=== PATIENT | female | born 1950 | race Caucasian/White ===

== ENCOUNTER → 2017-10-24 09:54 | Outpatient (CLI) | payer MEDICARE, OTHER, SELFPAY ==
[2017-10-24 10:46] LABS: Add Manual Diff / Slide Review NO; Basophils Percent Auto 0.4 % (0-2); Eosinophils Percent Auto 0.2 % (2-4); Hematocrit 37.7 % (36-46); Lymphocytes Percent Auto 14.7 % (25-40); Mean Corpuscular HGB Conc 34.4 % (30-36); Mean Corpuscular Hemoglobin 31.6 PG (26-34); Mean Corpuscular Volume 91.7 fL (80-100); Monocytes Percent Auto 7.6 % (3-14); Neutrophils Absolute Auto 7100 /uL (3000-5900); Neutrophils Percent Auto 77.1 % (50-75); Platelet Count 284 X10^3/uL (150-400); Red Blood Cell Count 4.11 X10^6/uL (4.0-5.2); Red Cell Distribution Width 13.6 % (11.6-14.8); White Blood Cell Count 9.2 X10^3/uL (4.5-11.0)
[2017-10-24 11:30] LABS: Alanine Aminotransferase 26 IU/L (9-52); Albumin 4.3 g/dL (3.5-5.0); Albumin Globulin Ratio 1.5 (1.0-2.8); Alkaline Phosphatase 67 U/L (38-126); Aspartate Aminotransferase 29 IU/L (14-36); BUN Creatinine Ratio 22.5 (6-22); Bilirubin Total 0.6 mg/dL (0.2-1.3); Blood Urea Nitrogen 18 mg/dL (7-17); Calcium 9.4 mg/dL (8.4-10.2); Carbon Dioxide 31 mmol/L (22-32); Chloride 98 mmol/L (98-107); Cholesterol 258 mg/dL (140-199); Estimated Glomerular Filt Rate > 60.0 mL/min (>60); Globulin 2.9 g/dL (1.7-4.1); Glucose 99 mg/dL (80-110); HDL Cholesterol 104 mg/dL (40-60); HEMOLYSIS < 15 (0-50); LDL Cholesterol Calculated 137 mg/dL (<100); Potassium 4.6 mmol/L (3.4-5.1); Sodium 138 mmol/L (137-145); Total Protein 7.2 g/dL (6.3-8.2); Triglycerides 84 mg/dL (35-150)
== END ==
PROVIDERS: Family Provider Family Medicine; PCP Family Medicine; Visit Provider Family Medicine
DX: I10 Essential (primary) hypertension (principal); E78.00 Pure hypercholesterolemia, unspecified
CPT/HCPCS: 36415; 80053; 80061; 85025

== ENCOUNTER 2018-03-13 11:25 | Day surgery (SDC) | payer MEDICARE, OTHER, SELFPAY ==
--- NOTE | 2018-03-13 08:17 | PM.PREOP ---
Pre-operative Note Interval Note Pre-op Check: Yes History & Physical Reviewed by Physician Changes: No
[2018-03-13 11:59] VITALS: BP 124/72; PULSE 102; RESP 16; TEMP 36.2; O2SAT 124; BMI 22.8
[2018-03-13] MEDS: PROPARACAINE 0.5% OPHTH SOL 2 DROPS EYE-OP (12:06)
[2018-03-13] MEDS: CATARACT EYE COMPOUND (10 DROPS/SYRINGE) 3 DROPS EYE-OP (12:07)
[2018-03-13] MEDS: CHONDROIDTIN/SOD HYALURONATE 1.05 ML SYRINGE INTRAOCULA (13:43)
[2018-03-13] MEDS: MOXIFLOXACIN OPHTH DROPS 3 ML BOTTLE 2 DROPS INJ (13:43)
[2018-03-13] MEDS: HYALURONATE SODIUM 10 MG/ML SYRINGE INJ (13:43)
[2018-03-13] MEDS: BALANCED SALT IRRIG SOLN NO.2 15 ML IRRIG.SOLN IRR (13:43)
[2018-03-13] MEDS: PHENYLEPHRINE/LIDOCAINE VIAL (OR) 0.2 ML EYE-OP (13:44)
[2018-03-13] MEDS: OFLOXACIN 0.3% OPHTH 5 ML 2 DROPS EYE-LEFT (13:44)
[2018-03-13] MEDS: TRIAMCINOLONE 50 MG/5 ML VIAL INJ (13:44)
[2018-03-13] MEDS: LIDOCAINE 2% 4 ML, BUPIVACAINE 0.5% (PF) 4 ML, HYALURONIDASE 150 UNIT INJ (13:45)
[2018-03-13] MEDS: BALANCED SALT IRRIG SOLN NO.2 500 ML, EPINEPHrine 1 MG IRR (13:45)
[2018-03-13] MEDS: NEOMYCIN/POLY/DEX OPHTH OINT 1 APPLIC EYE-LEFT (13:46)
[2018-03-13 14:05] VITALS: BP 114/67; PULSE 89; RESP 14; TEMP 36.4; O2SAT 94
[2018-03-13 14:10] VITALS: BP 98/60; PULSE 86; RESP 17; O2SAT 96
[2018-03-13 14:16] VITALS: BP 119/80; PULSE 88; RESP 17; O2SAT 98
[2018-03-13 14:25] VITALS: BP 111/69; PULSE 82; RESP 16; TEMP 36.4; O2SAT 98
--- NOTE | 2018-03-13 15:53 | PM.OP.1 ---
Operative Date/Time/Diagnoses Date of procedure: 03/13/18 Time of procedure: 12:45 Procedure & Clinicians Procedure: Date of service: March 13, 2018 Preoperative diagnoses: 1. Nuclear sclerotic and cortical cataract. 2. Attention deficit and hyperactivity disorder. 3. Depression Postoperative diagnoses: 1. Cataract removed with phacoemulsification with multifocal depth of focus Symfony lens Procedure: Phacoemulsification with posterior chamber intraocular lens implant. Surgeon: Roya Meier MD Complications: none Specimen: None Implant:ZXROO+23.5 Blood loss: None Anesthesia: Retrobulbar with monitored standby and genral mask anesthesia due to inability to lie still due to psychiatric condition. Anesthesiologist: Vin Hawkins M.D. Description of procedure: Patient is a 67 year old female with decreased vision due to cataract which is affecting activities of daily living. She wants surgery to improve vision. She elects to correction with a depth of focus Symfony lens. She was taken to the operating room and given IV sedation. A laryngeal mask airway was placed.A retrobulbar block consisting of 4 cc of 2% xylocaine without epinephrine mixed half and half with 0.5% Marcaine with 1 cc of hyaluronidase added is placed between the medial and lateral 1/3 of the inferior orbital rim for postoperative pain control. The eye is manually massaged for 60 sec, prepped using Betadine solution, and draped in the usual sterile fashion. Temporal approach was made, a 1 mm side-port incision was made at the 12 oclock meridian. Phenylephrine 1.5% mixed with 1% xylocaine 0.2 cc was placed into the anterior chamber. Viscoat followed by Jose was then placed. A 2.6 mm clear incision with a 2.6 mm blade was placed at the 3 oclock meridian. A 360 degree capsulorrhexis style capsulotomy was then performed with a cystitome needle on a Healon. Hydrodelineation and hydrodissection were performed. The phacoemulsification unit is introduced, and sculpting notice used to groove the central lens. It is then removed in chopping mode. Epi nucleus is removed with epinuclear mode and irrigation aspiration was used to remove the peripheral cortex. The posterior capsule is polished. The intraocular lens is selected, inspected, power confirmed, and placed in the posterior chamber. The pupil was not constricted. The wound was stromally hydrated and tested for leaks, there was none and was left sutureless. Vigamox 0.1 cc was placed into the anterior chamber. Kenalog 0.2 cc was placed in the superior subconjunctival space. A drop of antibiotic and was placed and the eye was patched and shielded. The patient was stable and returned to the recovery room in excellent condition. Dictated by: Roya Meier MD Copy to: [facility] Same procedure as scheduled: Yes
== END 2018-03-13 14:39 | disposition home or self-care (01) ==
LOC: OR 11:27
PROVIDERS: PCP Student in an Organized Health Care Education/Training Program; Visit Provider Ophthalmology
DX: H25.12 Age-related nuclear cataract, left eye (principal); I10 Essential (primary) hypertension
CPT/HCPCS: J0171; J2405; J2704; J3010; J3301; J3470; V2788

== ENCOUNTER 2018-03-27 06:58 | Day surgery (SDC) | payer MEDICARE, OTHER, SELFPAY ==
--- NOTE | 2018-03-26 16:56 | PM.OP.1 ---
Operative Date/Time/Diagnoses Date of procedure: 03/27/18 Time of procedure: 07:57
--- NOTE | 2018-03-26 16:57 | PM.PREOP ---
Pre-operative Note Interval Note Pre-op Check: Yes History & Physical Reviewed by Physician Changes: No
[2018-03-27] MEDS: PROPARACAINE 0.5% OPHTH SOL 2 DROPS EYE-OP (07:12)
[2018-03-27] MEDS: CATARACT EYE COMPOUND (10 DROPS/SYRINGE) 3 DROPS EYE-OP (07:18)
[2018-03-27 07:19] VITALS: BMI 22.6
[2018-03-27 07:24] VITALS: BP 147/85; PULSE 95; RESP 16; TEMP 36.4; O2SAT 100
--- NOTE | 2018-03-27 07:45 | P.OP_ITS ---
Procedure & Clinicians Procedure: Date of service:March 27, 2008 Preoperative diagnosis: 1. Nuclear and cortical Cataract. 2. Attention deficit disorder. 3. Depression. Postoperative diagnoses: 1. Cataract removed with phacoemulsification and a Symfony depth of focus intra-ocular lens implant was placed. Procedure: Phacoemulsification with posterior chamber intraocular lens implant Surgeon: Roya Meier MD Complications: None. Specimen: None Implant:ZXROO+23.5 Blood loss: None Anesthesia: General laryngeal mask airway Retrobulbarblock. Anesthesiologist: Landon Chavez M.D. Description of procedure: Patient is a 67 year old feamle with decreased vision due to cataract which is affecting activities of daily living. She wants surgery to improve vision. She elects placement of a multifocal depth of focus IOL. she requires general anesthesia due to her attention deficit disorder and depression. She was taken to the operating room and given alaryngeal mask airway after IV sedation. A retrobulbar block insert consisting of 6 cc of 2% xylocaine without epinephrine mixed half and half with 0.5% Marcaine with 1 cc of hyaluronidase added is placed between the medial and lateral 1/3 of the inferior orbital rim for post operative pain control. The eye is manually massaged for 30 sec, prepped using Betadine solution, and draped in the usual sterile fashion. Temporal approach was made, a 1 mm side-port incision was made at the 7:30 position. Phenylephrine 1.5% mixed with 1% xylocaine 0.2 cc was placed into the anterior chamber. Viscoat followed by Healon was then placed. A 2.6 mm clear incision with a 2.6 mm blade was placed at the 170 degree meridian. A 360 degree capsulorrhexis style capsulotomy was then performed with a cystitome needle on a Healon. Hydrodelineation and hydrodissection were performed. The phacoemulsification unit is introduced, and sculpting notice used to groove the central lens. It is then removed in chopping mode. Epi nucleus is removed with epinuclear mode and irrigation aspiration was used to remove the peripheral cortex. The posterior capsule is polished. The Symfony intraocular lens is selected, inspected, power confirmed, and placed in the posterior chamber. The pupil was not constricted. The wound was stromallly hydrated and tested for leaks, there was none and it left sutureless. Vigamox 0.1 cc was placed into the anterior chamber. Kenalog 0.2 cc was placed in the superior subconjunctival space. A contact lens was placed for post opreative comfort. A drop of antibiotic and was placed and the eye was patched and shielded. The patient was stable and returned to the recovery room in excellent condition. Dictated by: Roya Meier MD Copy to: [facility] Same procedure as scheduled: Yes
[2018-03-27] MEDS: LACTATED RINGERS 1,000 ML 42 ML IV ×2 (07:46→08:43)
[2018-03-27] MEDS: MOXIFLOXACIN OPHTH DROPS 3 ML BOTTLE 2 DROPS INJ (08:26)
[2018-03-27] MEDS: PHENYLEPHRINE/LIDOCAINE VIAL (OR) 0.2 ML EYE-OP (08:26)
[2018-03-27] MEDS: CHONDROIDTIN/SOD HYALURONATE 1.05 ML SYRINGE INTRAOCULA (08:27)
[2018-03-27] MEDS: BALANCED SALT IRRIG SOLN NO.2 15 ML IRRIG.SOLN IRR (08:27)
[2018-03-27] MEDS: HYALURONATE SODIUM 10 MG/ML SYRINGE INJ (08:27)
[2018-03-27] MEDS: TRIAMCINOLONE 50 MG/5 ML VIAL INJ (08:27)
[2018-03-27] MEDS: NEOMYCIN/POLY/DEX OPHTH OINT 1 APPLIC EYE-RIGHT (08:28)
[2018-03-27] MEDS: BALANCED SALT IRRIG SOLN NO.2 500 ML, EPINEPHrine 1 MG IRR (08:29)
[2018-03-27] MEDS: LIDOCAINE 2% 4 ML, BUPIVACAINE 0.5% (PF) 4 ML, HYALURONIDASE 150 UNIT INJ (08:30)
[2018-03-27 08:53] VITALS: BP 135/82; PULSE 92; RESP 18; TEMP 36.4; O2SAT 97
[2018-03-27 09:00] VITALS: BP 144/70; PULSE 93; RESP 19; O2SAT 99
[2018-03-27 09:04] VITALS: BP 124/47; PULSE 92; RESP 20; O2SAT 94
[2018-03-27 09:14] VITALS: BP 131/72; PULSE 88; RESP 16; TEMP 36.6; O2SAT 97
== END 2018-03-27 09:29 | disposition home or self-care (01) ==
LOC: OR 06:59
PROVIDERS: PCP Student in an Organized Health Care Education/Training Program; Visit Provider Ophthalmology
DX: H25.11 Age-related nuclear cataract, right eye (principal); F98.8 Other specified behavioral and emotional disorders with onset usually occurring in childhood and adolescence; F33.41 Major depressive disorder, recurrent, in partial remission; I10 Essential (primary) hypertension
CPT/HCPCS: J0171; J1100; J2405; J2704; J3301; J3470; V2788

== ENCOUNTER → 2018-07-17 08:42 | Outpatient (CLI) | payer MEDICARE, OTHER, SELFPAY ==
--- NOTE | 2018-07-17 08:46 | DI.MG.S_ITS ---
BILATERAL DIGITAL SCREENING MAMMOGRAM 3D/2D WITH CAD WITH AUGMENTATION: 07/17/2018 CLINICAL: Routine screening. Comparison is made to exams dated: 11/17/2016 mammogram and 02/23/2015 mammogram - [facility]. The tissue of both breasts is extremely dense, which lowers the sensitivity of mammography. Current study was also evaluated with a Computer Aided Detection (CAD) system. Bilateral breast implants are intact. No significant masses, calcifications, or other findings are seen in either breast. There has been no significant interval change. IMPRESSION: NEGATIVE There is no mammographic evidence of malignancy. A 1 year screening mammogram is recommended. This exam was interpreted at Station ID: [id number]. NOTE: For mammograms, a report in lay terms will be sent to the patient. Approximately 15% of breast malignancies will not be visualized mammographically. In the management of a palpable breast mass, a negative mammogram must not discourage biopsy of a clinically suspicious lesion. Electronically Signed By: Rubi cabello/cindy:07/17/2018 10:23:31 letter sent: Normal Exam ACR BI-RADS Category 1: Negative [id number]
== END ==
PROVIDERS: PCP Student in an Organized Health Care Education/Training Program; Visit Provider Student in an Organized Health Care Education/Training Program
DX: Z12.31 Encounter for screening mammogram for malignant neoplasm of breast (principal)
CPT/HCPCS: 77063; 77067

== ENCOUNTER 2018-08-17 10:09 | Observation (INO) | payer MEDICARE, OTHER, SELFPAY ==
[2018-08-17] VITALS (12 sets, daily range): BP systolic 132–155; BP diastolic 68–97; PULSE 72–99; RESP 12–22; TEMP 36.5–36.8; O2SAT 96–100; BMI 22.4
--- NOTE | 2018-08-17 10:24 | DI.CT.S_ITS ---
PROCEDURE: CT HEAD/BRAIN WO CON INDICATIONS: headache TECHNIQUE: Noncontrast 4.5 mm thick angled axial sections acquired from the foramen magnum to the vertex, with coronal and sagittal reformats. For radiation dose reduction, the following was used: automated exposure control, adjustment of mA and/or kV according to patient size. COMPARISON: None. FINDINGS: Image quality: Excellent. CSF spaces: Basal cisterns are patent. No extra-axial fluid collections. The ventricles are symmetric in size and shape. Brain: No intracranial bleeds or masses. There is mild cerebral volume loss for age, with resultant ventricular and sulcal prominence. There are moderate periventricular and deep white matter chronic small vessel ischemic changes. There is intracranial internal carotid artery atherosclerosis. Skull and face: Calvarium and visualized facial bones appear intact, without suspicious lesions. Sinuses: Visualized sinuses and mastoids are clear. IMPRESSION: 1. No acute intracranial abnormalities. 2. Mild cerebral volume loss and moderate chronic microvascular ischemic changes. If clinical symptoms persist or clinical suspicion for acute stroke is high, MRI is suggested for further evaluation. The result was discussed with Dr. Abrams in ER prior dictation. Dictated by: Ruth Avila M.D. on 08/17/2018 at 10:50 Approved by: Ruth Avila M.D. on 08/17/2018 at 10:55
--- NOTE | 2018-08-17 10:29 | ED_ITS ---
HPI - Dizziness General Chief Complaint: Dizziness Stated Complaint: dizzy Time Seen by Provider: 08/17/18 10:11 Source: patient and EMS Mode of arrival: EMS Limitations: no limitations History of Present Illness HPI Narrative: Patient is a 67-year-old female presents by EMS with some lightheadedness and bilateral leg weakness. She states that she woke up this morning with a small headache. Thought nothing of it. It went away. She then rode the recumbent bicycle while reading a book she was going very slowly again felt a little dizzy lightheaded. She got sweaty, felt nauseated, no vomiting, no chest pain, no heart palpitations or shortness of breath. She has no focal deficits or weakness. Glucose by EMS was 115. She knows awake alert able to transfer herself by walking from EMS gurney to hospital bed. complaint: lightheadedness and near syncope Related Data Home Medications Medication Instructions Recorded Confirmed gabapentin 300 mg capsule 300 mg PO DAILY 03/14/18 03/27/18 cyclobenzaprine 10 mg PO TIDP PRN 03/27/18 03/27/18 simvastatin 10 mg PO HS 03/27/18 03/27/18 Previous Rx's Medication Instructions Recorded estradiol [Estring] 2 mg VAGINAL SEE INSTRUCTIONS #1 ea 02/21/17 lisinopril 20 mg tablet 20 mg PO QDAY #90 tab 03/14/18 venlafaxine ER 75 mg 75 mg PO Q DAY #90 cap 03/14/18 capsule,extended release 24 hr dextroamphetamine-amphetamine 10 10 mg PO QDAY #30 tab 06/26/18 mg tablet dextroamphetamine-amphetamine ER 30 mg PO Q DAY #30 cap 06/26/18 30 mg 24hr capsule,extend release zolpidem 10 mg tablet 10 mg PO HS #90 tab 06/28/18 nortriptyline 10 mg capsule 10 mg PO BEDTIME #90 cap 07/17/18 Allergies Allergy/AdvReac Type Severity Reaction Status Date / Time No Known Drug Allergies Allergy Verified 03/14/18 10:56 Review of Systems Review of Systems ROS Unobtainable: All systems reviewed & are unremarkable except as noted in HPI and below Constitutional Denies chills, Denies fever(s), Denies lethargy and Denies weakness Eyes Denies change in vision, Denies eye discharge, Denies irritation and Denies loss of vision ENT Ears, Nose, Mouth, and Throat: Denies vertigo and Denies dizziness Cardiovascular Denies syncope, Denies irregular heart rhythm, Reports lightheadedness and Denies dyspnea Respiratory Denies cough and Denies dyspnea Gastrointestinal Gastrointestinal: Denies abdominal pain, Denies change in bowel habits, Denies diarrhea, Denies nausea and Denies vomiting Genitourinary Denies hematuria, Denies flank pain, Denies urinary incontinence and Denies urinary urgency Musculoskeletal Denies back pain, Denies muscle weakness, Denies numbness and Denies tingling Integumentary/Breasts Denies pruritus, Denies erythema, Denies rash and Denies wounds Neurologic Denies confusion, Denies vertigo, Denies dizziness, Denies syncope, Denies loss of vision, Denies numbness, Denies tingling and Denies weakness Psychiatric Denies confusion [facility] Surgical History H/O breast biopsy (Resolved 01/2009) History of breast augmentation History of third molar tooth extraction Status post surgery (12/21/09) Family History Father Hyperlipidemia Essential hypertension Heart disease Social History household members: spouse Smoking Status: Former smoker Family History Father Hyperlipidemia Essential hypertension Heart disease Social History household members: spouse Smoking Status: Former smoker Exam Initial Vital Signs Initial Vital Signs: Vital Signs Temperature 97.8 F 08/17/18 10:11 Pulse Rate 90 08/17/18 10:11 Respiratory Rate 12 08/17/18 10:11 Blood Pressure 141/78 H 08/17/18 10:11 Pulse Oximetry 100 08/17/18 10:11 GENERAL: Well-appearing, well-nourished and in no acute distress. HEENT: Head atraumatic,EOMI, pupils reactive, face symmetric, neck is supple CARDIOVASCULAR: Regular rate and rhythm without murmurs, rubs or gallops. RESPIRATORY: Breath sounds equal bilaterally, no wheezes rales or rhonchi. ABDOMEN: Soft, nontender. Normoactive bowel sounds all 4 quadrants. No guarding or rebound. : No CVA tenderness EXTREMITIES: Normal range of motion, no clubbing or edema. Neurovascularly intact NEUROLOGICAL: Alert and oriented x4.Normal gait and speech. Cranial nerves II through XII grossly intact. Good [id number], good [id number], strength equal bilaterally, no dysarthria or aphasia, sensation in tact to soft touch bilaterally, no visual changes, no facial droop SKIN: Warm, dry, no laceration, no petechiae, no rashes or lesions. Course Orders Ordered: ED Orders 08/17/18 10:06 EKG-12 Lead Stat 08/17/18 10:24 CT head/brain wo con Stat 08/17/18 10:55 Urinalysis and Microscopic Stat 08/17/18 11:15 Complete Blood Count AUTO DIFF Stat Comprehensive Metabolic Panel Stat Troponin & CK Cardiac Panel Stat 08/17/18 13:39 Trop I [Troponin I] Stat 08/17/18 16:05 Education, smoking cessation ONGOING 08/17/18 16:10 Magnesium Routine 08/17/18 21:00 Troponin & CK Cardiac Panel Routine Acetaminophen (Tylenol) 650 mg PO Q6HR PRN PRN Reason: As Needed for Fever/Mild Pain Al Hydrox/Mg Hydrox/Simethicone (Maalox Plus) 30 ml PO Q6HR PRN PRN Reason: Dyspepsia Calcium Carbonate (Tums) 1,000 mg PO Q4HR PRN PRN Reason: Dyspepsia Heparin Sodium (Porcine) (Heparin) 5,000 unit SUBCUT BID [facility] Sodium Chloride (Normal Saline 0.9%) 1,000 mls @ 1,000 mls/hr IV CONT EMILEE Last Infusion: 08/17/18 13:23 Dose: 0 mls/hr Admin: 08/17/18 10:41 Dose: 1,000 mls/hr Magnesium Hydroxide (Milk Of Magnesia) 30 ml PO DAILY PRN PRN Reason: Constipation Ondansetron HCl (Zofran) 4 mg IV Q8HR PRN PRN Reason: Nausea And Vomiting Sennosides (Senna) 17.2 mg PO BEDTIME PRN PRN Reason: Constipation Consultations Consultation #1: Dr. Mendes, cardiology, recommends observation and trending toponins. Stress test and echo. Possible transient a.fib. If troponin rising then transfer. Time: 14:56 Consultation #2: Dr. barr accepts for observation Time: 15:05 Vital Signs - 8 hr 08/17/18 10:11 08/17/18 11:12 08/17/18 12:00 Temperature 97.8 F Pulse Rate 90 82 99 H Respiratory Rate 12 15 Blood Pressure 141/78 H Blood Pressure [Right Arm] 155/71 H 153/70 H Pulse Oximetry 100 100 100 08/17/18 13:00 08/17/18 14:00 Temperature Pulse Rate 96 H 89 Respiratory Rate 16 Blood Pressure Blood Pressure [Right Arm] 147/69 H 136/68 Pulse Oximetry 98 100 MDM - Dizziness Lab Data Attestation: I reviewed the patient's lab results. Result diagrams: 08/17/18 11:15 08/17/18 11:15 Lab Results 08/17/18 08/17/18 08/17/18 Range/Units 10:55 11:15 11:15 WBC 7.8 (4.5-11.0) X10^3/uL RBC 3.92 L (4.0-5.2) X10^6/uL Hgb 12.3 (12.0-16.0) g/dL Hct 37.2 (36-46) % MCV 94.9 (80-100) fL MCH 31.5 (26-34) PG MCHC 33.2 (30-36) % RDW 13.3 (11.6-14.8) % Plt Count 269 (150-400) X10^3/uL Neut % (Auto) 74.7 (50-75) % Lymph % (Auto) 14.7 L (25-40) % [place]ila % (Auto) 8.2 (3-14) % Eos % (Auto) 1.9 L (2-4) % Baso % (Auto) 0.5 (0-2) % Neut # (Auto) 5900 (6146-8323) /uL Lymph # (Auto) 1200 (7868-5163) /uL [place]ila # (Auto) 600 (0-900) /uL Eos # (Auto) 100 (0-450) /uL Baso # (Auto) 0 (0-100) /uL Sodium 136 L (137-145) mmol/L Potassium 4.2 (3.4-5.1) mmol/L Chloride 102 (98-107) mmol/L Carbon Dioxide 27 (22-32) mmol/L BUN 15 (7-17) mg/dL Creatinine 0.90 (0.52-1.04) mg/dL Estimated GFR > 60.0 (>60) mL/min BUN/Creatinine Ratio 16.7 (6-22) Glucose 110 (80-110) mg/dL Calcium 9.1 (8.4-10.2) mg/dL Total Bilirubin 0.3 (0.2-1.3) mg/dL AST 25 (14-36) IU/L ALT 25 (9-52) IU/L Alkaline Phosphatase 78 (38-126) U/L Total Creatine Kinase 94 (30-135) U/L CK-MB (CK-2) TNP CK-MB (CK-2) Rel Index TNP Troponin I 0.036 H (0.01-0.034) ng/mL Total Protein 6.6 (6.3-8.2) g/dL Albumin 4.0 (3.5-5.0) g/dL Globulin 2.6 (1.7-4.1) g/dL Albumin/Globulin Ratio 1.5 (1.0-2.8) Urine Color Yellow Urine Appearance Clear Urine pH 7.5 (4.5-8.0) Ur Specific [place] 1.015 (1.000-1.035) Urine Protein Negative (Negative) Urine Glucose (UA) Negative (Negative) g/dL Urine Ketones Negative (NEGATIVE) Urine Occult Blood Negative (Negative) Urine Nitrate Positive H (Negative) Urine Bilirubin Negative (NEGATIVE) Urine Urobilinogen 0.2 (0.2) E.U./dL Ur Leukocyte Esterase Negative (NEGATIVE) Urine RBC None seen (0-5/HPF) Urine WBC None seen (0-5/HPF) Amorphous Sediment 1+ Urine Bacteria None seen (None) Ur Culture Indicated? Cult not indicated 08/17/18 Range/Units 13:39 WBC (4.5-11.0) X10^3/uL RBC (4.0-5.2) X10^6/uL Hgb (12.0-16.0) g/dL Hct (36-46) % MCV (80-100) fL MCH (26-34) PG MCHC (30-36) % RDW (11.6-14.8) % Plt Count (150-400) X10^3/uL Neut % (Auto) (50-75) % Lymph % (Auto) (25-40) % [place] % (Auto) (3-14) % Eos % (Auto) (2-4) % Baso % (Auto) (0-2) % Neut # (Auto) (9600-8259) /uL Lymph # (Auto) (9309-3298) /uL [place] # (Auto) (0-900) /uL Eos # (Auto) (0-450) /uL Baso # (Auto) (0-100) /uL Sodium (137-145) mmol/L Potassium (3.4-5.1) mmol/L Chloride (98-107) mmol/L Carbon Dioxide (22-32) mmol/L BUN (7-17) mg/dL Creatinine (0.52-1.04) mg/dL Estimated GFR (>60) mL/min BUN/Creatinine Ratio (6-22) Glucose (80-110) mg/dL Calcium (8.4-10.2) mg/dL Total Bilirubin (0.2-1.3) mg/dL AST (14-36) IU/L ALT (9-52) IU/L Alkaline Phosphatase (38-126) U/L Total Creatine Kinase (30-135) U/L CK-MB (CK-2) CK-MB (CK-2) Rel Index Troponin I 0.082 H (0.01-0.034) ng/mL Total Protein (6.3-8.2) g/dL Albumin (3.5-5.0) g/dL Globulin (1.7-4.1) g/dL Albumin/Globulin Ratio (1.0-2.8) Urine Color Urine Appearance Urine pH (4.5-8.0) Ur Specific [place] (1.000-1.035) Urine Protein (Negative) Urine Glucose (UA) (Negative) g/dL Urine Ketones (NEGATIVE) Urine Occult Blood (Negative) Urine Nitrate (Negative) Urine Bilirubin (NEGATIVE) Urine Urobilinogen (0.2) E.U./dL Ur Leukocyte Esterase (NEGATIVE) Urine RBC (0-5/HPF) Urine WBC (0-5/HPF) Amorphous Sediment Urine Bacteria (None) Ur Culture Indicated? Imaging Data CT scan - head: Radiologist's impression: PROCEDURE: CT HEAD/BRAIN WO CON INDICATIONS: headache TECHNIQUE: Noncontrast 4.5 mm thick angled axial sections acquired from the foramen magnum to the vertex, with coronal and sagittal reformats. For radiation dose reduction, the following was used: automated exposure control, adjustment of mA and/or kV according to patient size. COMPARISON: None. FINDINGS: Image quality: Excellent. CSF spaces: Basal cisterns are patent. No extra-axial fluid collections. The ventricles are symmetric in size and shape. Brain: No intracranial bleeds or masses. There is mild cerebral volume loss for age, with resultant ventricular and sulcal prominence. There are moderate periventricular and deep white matter chronic small vessel ischemic changes. There is intracranial internal carotid artery atherosclerosis. Skull and face: Calvarium and visualized facial bones appear intact, without laguerre spicious lesions. Sinuses: Visualized sinuses and mastoids are clear. IMPRESSION: 1. No acute intracranial abnormalities. 2. Mild cerebral volume loss and moderate chronic microvascular ischemic changes. If clinical symptoms persist or clinical suspicion for acute stroke is high, MRI is suggested for further evaluation. The result was discussed with Dr. Abrams in ER prior dictation. Dictated by: Ruth Avila M.D. on 08/17/2018 at 10:50 ECG Data Attestation: I personally reviewed and interpreted this ECG as follows: Prior ECG tracings: not available for review MDM Narrative Medical decision making narrative: chronic changes noted and CT. I spoke directly with the radiologist. But patient does not have letter icing or focal deficits consistent with stroke. She has been ambulatory to the restroom multiple times she has no speech difficulty, at this time no symptoms to suggest acute stroke. Troponin mildly elevated repeat troponin is drawn Discharge Plan Departure Patient Disposition: Admitted as Observation Clinical Impression: Elevated troponin Admit Date/Time: 08/17/18 15:34 Admit Provider: Kacey Barr
[2018-08-17] MEDS: SODIUM CHLORIDE 0.9% 1,000 ML 1000 ML IV (10:41)
[2018-08-17 10:57] LABS: Bacteria Urine None Seen; RBC Urine None Seen (0-5/HPF); WBC Urine None Seen (0-5/HPF)
[2018-08-17 11:02] LABS: Appearance Urine UA CLEAR; Bilirubin Urine UA NEGATIVE (NEGATIVE); Color Urine UA YELLOW; Glucose Urine UA NEGATIVE (Negative); Ketones Urine UA NEGATIVE (NEGATIVE); Leukocyte Esterase Urine UA NEGATIVE (NEGATIVE); Nitrite Urine UA POSITIVE (Negative); Occult Blood Urine UA NEGATIVE (Negative); Protein Urine UA NEGATIVE (Negative); Specific Gravity Urine UA 1.015 (1.000-1.035); Urobilinogen Urine UA 0.2 E.U./dL (0.2); pH Urine UA 7.5 (4.5-8.0)
[2018-08-17 11:15] LABS: Amorphous Sediment Urine 1+
[2018-08-17 11:16] LABS: Culture Indicated Urine Cult Not Indicated
[2018-08-17 11:26] LABS: Add Manual Diff / Slide Review NO; Basophils Absolute Auto 0 /uL (0-100); Basophils Percent Auto 0.5 % (0-2); Eosinophils Absolute Auto 100 /uL (0-450); Eosinophils Percent Auto 1.9 % (2-4); Hematocrit 37.2 % (36-46); Hemoglobin 12.3 g/dL (12.0-16.0); Lymphocytes Absolute Auto 1200 /uL (1100-4500); Lymphocytes Percent Auto 14.7 % (25-40); Mean Corpuscular HGB Conc 33.2 % (30-36); Mean Corpuscular Hemoglobin 31.5 PG (26-34); Mean Corpuscular Volume 94.9 fL (80-100); Monocytes Absolute Auto 600 /uL (0-900); Monocytes Percent Auto 8.2 % (3-14); Neutrophils Absolute Auto 5900 /uL (1500-7000); Neutrophils Percent Auto 74.7 % (50-75); Platelet Count 269 X10^3/uL (150-400); Red Blood Cell Count 3.92 X10^6/uL (4.0-5.2); Red Cell Distribution Width 13.3 % (11.6-14.8); White Blood Cell Count 7.8 X10^3/uL (4.5-11.0)
[2018-08-17 11:40] LABS: Alanine Aminotransferase 25 IU/L (9-52); Albumin Globulin Ratio 1.5 (1.0-2.8); Alkaline Phosphatase 78 U/L (38-126); Aspartate Aminotransferase 25 IU/L (14-36); BUN Creatinine Ratio 16.7 (6-22); Bilirubin Total 0.3 mg/dL (0.2-1.3); Blood Urea Nitrogen 15 mg/dL (7-17); Calcium 9.1 mg/dL (8.4-10.2); Carbon Dioxide 27 mmol/L (22-32); Chloride 102 mmol/L (98-107); Creatine Kinase 94 U/L (30-135); Estimated Glomerular Filt Rate > 60.0 mL/min (>60); Globulin 2.6 g/dL (1.7-4.1); Glucose 110 mg/dL (80-110); HEMOLYSIS < 15 (0-50); Potassium 4.2 mmol/L (3.4-5.1); Sodium 136 mmol/L (137-145); Total Protein 6.6 g/dL (6.3-8.2)
[2018-08-17 11:52] LABS: Troponin I 0.036 ng/mL (0.01-0.034)
[2018-08-17 14:10] LABS: Troponin I 0.082 ng/mL (0.01-0.034)
[2018-08-17 16:28] LABS: Magnesium 1.9 mg/dL (1.6-2.3)
[2018-08-17] MEDS: ACETAMINOPHEN 325 MG TABLET 650 MG PO (17:22)
--- NOTE | 2018-08-17 20:55 | DI.RAD.S_ITS ---
PROCEDURE: XR CHEST 2V INDICATIONS: malaise, abn pulm exam TECHNIQUE: 2 views of the chest were acquired. COMPARISON: None. FINDINGS: Surgical changes and devices: None. Lungs and pleura: Lungs are clear. No pleural effusions or pneumothorax. Mediastinum: Mediastinal contours are normal. Heart size is normal. Bones and chest wall: No suspicious bony abnormalities. Soft tissues appear unremarkable. IMPRESSION: No acute cardiopulmonary disease. Dictated by: Ruth Avila M.D. on 08/17/2018 at 22:18 Approved by: Ruth Avila M.D. on 08/17/2018 at 22:19
--- NOTE | 2018-08-17 20:56 | DI.ECHO.S_ITS ---
[place] [facility] +---------+ : : [address] : : : : [id number] : : : : Phone: [phone]+ Echocardiogram Report + + :Name: NEERAJ DIAL Study Date: 08/18/2018 Height: 65 in : :[facility] Exam Location: IS Weight: 135 lb : : Gender: Female BSA: 1.7 m2 : :: 1950 Age: 67 yrs BP: 139/75 mmHg: :Reason For Study: Dizziness/ HTN/ Elevated troponin : :Ordering Physician: Yesy : :Hospitalist Performed By: Tamika Page : :Referring: DAVID OSBORNE : + + Interpretation Summary The left ventricle is normal in size, wall thickness, and systolic function without any focal wall motion abnormalities with the ejection fraction visually estimated to be 65-70%. Diastolic parameters suggest probable normal left ventricular diastolic function and normal filling pressures. The right ventricle is normal in size and function. Pulmonary artery pressures cannot be estimated because of the lack of a measurable TR jet velocity but the IVC suggests a CVP of around 3 mmHg. Both atria are normal in size. There is moderate aortic valve sclerosis but no hemodynamically significant aortic stenosis. There is no significant valvular heart disease. Procedure: A two-dimensional transthoracic echocardiogram with color flow and Doppler was performed. The study was technically difficult due to breast implants. There is no prior echocardiogram noted for this patient. The patient was in normal sinus rhythm during the exam. Left Ventricle: The left ventricle is normal in size, wall thickness, and systolic function without any focal wall motion abnormalities. The ejection fraction is estimated to be 65-70%. Diastolic parameters suggest probable normal left ventricular diastolic function and normal filling pressures. Right Ventricle: The right ventricle is normal in size and function. Atria: Both atria are normal in size. There is no Doppler evidence for an interatrial shunt. Mitral Valve: There is mild mitral annular calcification. The mitral valve leaflets appear mildly thickened, but open well. There is trace mitral regurgitation. Aortic Valve: The aortic valve is not well visualized. There is moderate aortic valve sclerosis. The aortic valve is moderately calcified. Leaflet mobility is mildly reduced. There is no hemodynamically significant valvular aortic stenosis. There is trace aortic regurgitation. Tricuspid Valve: The tricuspid valve is normal in structure and function. There is trace tricuspid regurgitation. Pulmonary artery pressures cannot be estimated because of the lack of a measurable TR jet velocity but the IVC suggests a CVP of around 3 mmHg. Pulmonic Valve: The pulmonic valve is not well visualized. There is no significant valvular heart disease. Great Vessels: The aortic root is normal size. The ascending aorta could not be visualized. The pulmonary is not well visualized. The IVC is of normal diameter and collapses greater than 50% with a sniff. This suggests a low right atrial pressure of 3 mm Hg. Pericardium/ Pleura There is no pericardial effusion. There is no pleural effusion. MMode/2D Measurements & Calculations LVIDd: 3.9 cm LVOT diam: 2.0 cm LVIDs: 2.4 cm Ao root diam: 3.6 cm FS: 38.7 % EPSS: 0.35 cm IVSd: 0.81 cm LVPWd: 0.84 cm LV sahni. diameter/BSA (cm/m^2): 2.4 LV sys. diameter/BSA (cm/m^2): 1.4 LA A2 area: 19.6 cm2 RA long axis: 3.7 cm LA A4 area: 15.5 cm2 RA area: 12.3 cm2 LA length (vol): 4.7 cm RA vol: 35.0 ml LA vol: 54.8 ml RA : 20.9 ml/m2 LA vol index: 32.7 ml/m2 IVC diam: 1.3 cm RVD1 (basal): 3.5 cm TAPSE: 1.8 cm Doppler Measurements & Calculations Ao V2 max: 128.3 cm/sec LVOT Max Moisés: 91.5 cm/sec Ao V2 mean: 86.6 cm/sec LV V1 max P.3 mmHg Ao max P.6 mmHg LV V1 VTI: 20.0 cm Ao mean P.4 mmHg NATHEN(I,D): 2.4 cm2 Ao V2 VTI: 26.4 cm NATHEN(V,D): 2.2 cm2 sev ratio: 0.76 NATHEN indexed to BSA (cm^2/m^2): 1.4 MV E max moisés: 75.2 cm/sec TR max moisés: 184.9 cm/sec MV A max moisés: 99.8 cm/sec TR max P.7 mmHg MV E/A: 0.75 PA V2 max: 63.9 cm/sec Med Peak E' Moisés: 5.8 cm/sec PA V2 mean: 47.5 cm/sec E/E' med: 13.0 PA mean P.96 mmHg Lat Peak E' Moisés: 8.3 cm/sec PA Accel Time: 0.10 sec E/E' lat: 9.0 E/e' average: 11.0 MV dec time: 0.23 sec MV P1/2t: 68.7 msec MV /2t max moisés: 75.5 cm/sec SV(LVOT): 63.0 ml MVA(P1/2t): 3.2 cm2 Reading Physician:REYNALDO
--- NOTE | 2018-08-17 21:02 | PM.HP.1 ---
History of Present Illness Date Patient Seen: 08/17/18 Time Patient Seen: 20:10 Chief complaint: dizzy Narrative: HPI is obtained via direct patient interview. Patient appears very willing to discuss her symptoms and answer questions. however, on some occasions and details, was noted to be elusive, dismissive and minimally forthcoming. The patient is a 67-year-old female with PMH significant for HTN (dx 2014), dyslipidemia, interstitial cystitis, ADD, depression, OA, spinal stenosis, and chronic back pain. patient presented to the ED out to be evaluated for dizziness. Patient has woke up this morning in her usual state of health. Her mornings fairly uneventful, she did not eat, but did drink coffee and was starting to . She was in preparation to exercise on stationary bike. Having a slow start, started pedaling at a slow pace what patient describes as not enought to get up the heart rate; also, reading a book. Notes developing sudden onset of what she describes pages looked like floating. Specifically denied double vision and blurry vision. She attempted to get off the bike, and as she put her leg on the ground she felt that she was unable to keep herself, describes her legs feeling like rubber. She did not fall or had a syncopal event. She crouched down to the floor and crawled into the bedroom, then was able to stand up and make her way outside by using the wall for support. When outside, she sat down to rest, at that time noted return of the headache. Also, became nauseated and had dry heaves w/o overt episodes of vomiting. At time of the event patient had bilateral lower extremity weakness, she denies significant weakness of upper extremities. Associated symptoms included flushing, feeling hot, diaphoresis, nausea, and dry heaving. patient denies experiencing chest, neck, jaw, or extremity pain. There was no palpitations, dyspnea, or extremity paresthesia / heaviness. In recent weeks patient has had some intermittent flu-like symptoms and sinus congestion. no fever or chills. No cough. Also denies exertional dyspnea, peripheral edema, and PND. No headache prior to the event. However, she does note a brief episode (lasting seconds) of headache shortly after awakening and then again after the event. Patient reports intermittent and more frequent episodes of headache in the past 6 months. Reports having some headaches in childhood/ young adulthood, but then notes a 10-15 year headache free period, until 6 months ago. Describes headaches as du and constant, localized over frontal aspect of the head, do not radiate. Typically, improved with oral analgesics (ie takes Tylenol). 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 More recently has been working more that usual, 4 days a week (days overall longer). No known recent head trauma. However she does head trauma 30 years ago, which was precipitated by a one time life event of a spontaneous seizure. No further seizure recurrence. Patient is known to take Adderall extended release, 30 mg daily. Last taken on Sunday. Patient was diagnosed with high blood pressure 5 years ago by report. She was started off on 5 mg of lisinopril daily. She was then titrated to 10 mg, and in the past 3 months to 20 mg. Per patient, it was explained to her, that the increase from 10-20 mg was not due to BP being elevated, but rather to increase the duration of the medication, noted to last longer at a 20 mg dose. patient does not typically check her blood pressure at home, previously notes it to be normal in the 130/70 mmHg range. She does note having a follow-up with her PCP on and BP at that time was 114/68 mmHg. Patient is not overweight, BMI 22.5. She does have dyslipidemia, poorly controlled. Lipid profile from 10/24/2017 revealed cholesterol 258, LDL 137, HDL 104, and triglycerides 84. FHx significant for cardiac disease in father and stroke in sister. Admits to remote history of tobacco use, a total of 2-3 years, and recreational drug use in childhood / young adulthood. Specifically denied current use of tobacco, recreational drugs, and marijuana. Denies use of alcohol. No prior history of an echocardiogram , a stress test or cardiac catheterization. Reports history of interstitial cystitis. Symptoms have been well-controlled with nortriptyline. several days ago experiencing urinary discomfort. Patient attributed this to routine symptoms of cystitis, she has taken OTC equivalent of AZO and notes symptoms to have improved / resolved at this time. Patient History Medical History Uncomplicated opioid dependence (Chronic) ADD (attention deficit disorder) (Chronic 2007) Carpal tunnel syndrome on left (Chronic 2009) Chronic back pain (Chronic 1989) Depression (Chronic 1999) Disorder of lumbar spine (Chronic 1989) Hyperlipemia (Chronic ~01/2011) Hypertension (Chronic Unknown) Insomnia (Chronic Unknown) Migraines (Chronic 2001) Osteoarthritis (Chronic 1999) Osteopenia (Chronic 2012) Restless leg syndrome (Chronic 2003) Spinal stenosis (Chronic 1999) Acne (Resolved 1964) Chickenpox (Resolved 1959) Surgical History H/O breast biopsy (Resolved 01/2009) History of breast augmentation History of third molar tooth extraction Status post surgery (12/21/09) Family History Father Hyperlipidemia Essential hypertension Heart disease Social History household members: spouse Smoking Status: Former smoker alcohol intake: former Family & Social History Family History Father Hyperlipidemia Essential hypertension Heart disease Social History: household members spouse Prior Living Arrangements House Safety & Behavioral: Feels Safe in Current Yes Environment Been Physically Hurt or No Threatened By a Person Suicidal Ideation Description None Suicide Plan Description No Plan Tobacco & Substance use: Smoking Status Former smoker alcohol intake former Substance Use Type other Meds Home Medications Medication Instructions Recorded Confirmed Type Estring 2 mg VAGINAL SEE INSTRUCTIONS #1 ea 02/21/17 08/17/18 Rx gabapentin 300 mg capsule 300 mg PO DAILY 03/14/18 08/17/18 History lisinopril 20 mg tablet 20 mg PO QDAY #90 tab 03/14/18 08/17/18 Rx venlafaxine ER 75 mg 75 mg PO Q DAY #90 cap 03/14/18 08/17/18 Rx capsule,extended release 24 hr cyclobenzaprine 10 mg PO TIDP PRN 03/27/18 08/17/18 History simvastatin 10 mg PO HS 03/27/18 08/17/18 History dextroamphetamine-amphetamine 10 10 mg PO QDAY #30 tab 06/26/18 08/17/18 Rx mg tablet dextroamphetamine-amphetamine ER 30 mg PO Q DAY #30 cap 06/26/18 08/17/18 Rx 30 mg 24hr capsule,extend release zolpidem 10 mg tablet 10 mg PO HS #90 tab 06/28/18 08/17/18 Rx nortriptyline 10 mg capsule 10 mg PO BEDTIME #90 cap 07/17/18 08/17/18 Rx Allergies Allergy/AdvReac Type Severity Reaction Status Date / Time No Known Drug Allergies Allergy Verified 03/14/18 10:56 Review of Systems Review of Systems All systems reviewed & are unremarkable except as noted in HPI and below Exam Vital Signs (past 8 hours): - 08/17/18 14:00 08/17/18 15:30 08/17/18 16:00 Temperature Pulse Rate 89 92 H 90 Respiratory Rate 17 22 Blood Pressure Blood Pressure [Right Arm] 136/68 132/70 133/97 H Pulse Oximetry 100 100 96 08/17/18 16:30 08/17/18 17:10 08/17/18 17:39 Temperature 97.7 F Pulse Rate 90 86 Respiratory Rate 20 16 Blood Pressure 139/75 Blood Pressure [Right Arm] 154/68 H Pulse Oximetry 97 100 100 Oxygen Delivery Method Room Air Narrative Exam Narrative: Constitutional: NAD Neurologic: AOx3, no focal neurological deficits Head: NC, AT Eyes: PERRL, EOMI, no scleral icterus Ears: external ears normal, no otorrhea Nose: external nose normal, no rhinorrhea or epistaxis Throat: dry MM, oropharynx w/o exudate Neck: no masses, lymphadenopathy, or JVD Chest / Respiratory: equal chest rise, unlabored respiratory effort, no tachypnea, crackles LLL/diminished Heart / CV: S1S2, no murmur Abdomen / GI: round, NT, ND, + BS, no organomegaly : no suprapubic tenderness, no CVA Peripheral / Vascular: warm to touch, DP and PT pulses palpable, no edema, varicosities noted Musc: full ROM of upper and lower extremities, adequate muscle tone and bulk Skin: no ecchymosis or suspicious lesions / ulcers Objective Labs Result Diagrams: 08/17/18 11:15 08/18/18 02:46 Labs: Laboratory Results - last 24 hr 08/17/18 08/17/18 08/17/18 10:55 11:15 11:15 WBC 7.8 RBC 3.92 L Hgb 12.3 Hct 37.2 MCV 94.9 MCH 31.5 MCHC 33.2 RDW 13.3 Plt Count 269 Neut % (Auto) 74.7 Lymph % (Auto) 14.7 L [place] % (Auto) 8.2 Eos % (Auto) 1.9 L Baso % (Auto) 0.5 Neut # (Auto) 5900 Lymph # (Auto) 1200 [place] # (Auto) 600 Eos # (Auto) 100 Baso # (Auto) 0 Sodium 136 L Potassium 4.2 Chloride 102 Carbon Dioxide 27 BUN 15 Creatinine 0.90 Estimated GFR > 60.0 BUN/Creatinine Ratio 16.7 Glucose 110 Calcium 9.1 Magnesium Total Bilirubin 0.3 AST 25 ALT 25 Alkaline Phosphatase 78 Total Creatine Kinase 94 CK-MB (CK-2) TNP CK-MB (CK-2) Rel Index TNP Troponin I 0.036 H Total Protein 6.6 Albumin 4.0 Globulin 2.6 Albumin/Globulin Ratio 1.5 Urine Color Yellow Urine Appearance Clear Urine pH 7.5 Ur Specific [place] 1.015 Urine Protein Negative Urine Glucose (UA) Negative Urine Ketones Negative Urine Occult Blood Negative Urine Nitrate Positive H Urine Bilirubin Negative Urine Urobilinogen 0.2 Ur Leukocyte Esterase Negative Urine RBC None seen Urine WBC None seen Amorphous Sediment 1+ Urine Bacteria None seen Ur Culture Indicated? Cult not indicated 08/17/18 08/17/18 13:39 13:39 WBC RBC Hgb Hct MCV MCH MCHC RDW Plt Count Neut % (Auto) Lymph % (Auto) [place] % (Auto) Eos % (Auto) Baso % (Auto) Neut # (Auto) Lymph # (Auto) [place] # (Auto) Eos # (Auto) Baso # (Auto) Sodium Potassium Chloride Carbon Dioxide BUN Creatinine Estimated GFR BUN/Creatinine Ratio Glucose Calcium Magnesium 1.9 Total Bilirubin AST ALT Alkaline Phosphatase Total Creatine Kinase CK-MB (CK-2) CK-MB (CK-2) Rel Index Troponin I 0.082 H Total Protein Albumin Globulin Albumin/Globulin Ratio Urine Color Urine Appearance Urine pH Ur Specific [place] Urine Protein Urine Glucose (UA) Urine Ketones Urine Occult Blood Urine Nitrate Urine Bilirubin Urine Urobilinogen Ur Leukocyte Esterase Urine RBC Urine WBC Amorphous Sediment Urine Bacteria Ur Culture Indicated? Assessment & Plan Assessment & Plan narrative: Elevated troponin, acute, present on admission Currently w/o angina. 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
[2018-08-17 21:23] LABS: Hemoglobin A1C% w Est Avg Glu 5.8 % (4.0-6.0)
[2018-08-17 21:25] LABS: Creatine Kinase 108 U/L (30-135)
[2018-08-17] MEDS: SODIUM CHLORIDE 0.9% 1,000 ML 100 ML IV (21:37)
[2018-08-17 21:41] LABS: CKMB % Relative Index 1.2 % (1.5-5.0); Creatine Kinase MB 1.31 ng/mL (<2.37)
[2018-08-17 22:12] LABS: Urine Cocaine Negative (Negative); Urine Morphine/Opi cutoff 2000 Negative (Negative); Urine Tetrahydrocannabinol Positive (Negative)
[2018-08-17 22:13] LABS: Urine Amphetamines Positive (Negative); Urine Barbiturates Negative (Negative); Urine Benzodiazepines Negative (Negative); Urine MDMA Negative (Negative); Urine Methadone Negative (Negative); Urine Methamphetamines Negative (Negative); Urine Oxycodone Negative (Negative); Urine Phencyclidine Negative (Negative); Urine Tricyclic Antidepressant Positive (Negative)
[2018-08-17] MEDS: ASPIRIN 81 MG TAB 324 MG PO (22:43)
[2018-08-18 02:54] VITALS: O2SAT 98
--- NOTE | 2018-08-18 02:56 | PC.NURSE ---
Addendum entered by Radha Falk R.N. 08/18/18 02:58: Is noted to have elevated BP of 141/71 earlier and now 149/81 Original Note: Patient is alert and oriented. Breath sounds CTA with RA sat of 98%; denies SOB. HRR and was SR on 0000 telemetry reading. Denies chest pain/pressure. Denies nausea. BT present and abdomen is soft. Independent with mobility. Voiding clear yellow urine and denies dysuria, frequency or urgency. Denies any pain. Fall risk score is low.
[2018-08-18 03:05] LABS: BUN Creatinine Ratio 12.2 (6-22); Blood Urea Nitrogen 11 mg/dL (7-17); Calcium 9.4 mg/dL (8.4-10.2); Carbon Dioxide 29 mmol/L (22-32); Chloride 107 mmol/L (98-107); Cholesterol 226 mg/dL (140-199); Estimated Glomerular Filt Rate > 60.0 mL/min (>60); Glucose 101 mg/dL (80-110); HDL Cholesterol 74 mg/dL (40-60); HEMOLYSIS < 15 (0-50); LDL Cholesterol Calculated 130 mg/dL (<100); Magnesium 1.9 mg/dL (1.6-2.3); Potassium 4.4 mmol/L (3.4-5.1); Sodium 140 mmol/L (137-145); Triglycerides 109 mg/dL (35-150)
[2018-08-18 03:06] VITALS: BP 149/81; PULSE 80; RESP 16; TEMP 36.4; O2SAT 98
[2018-08-18 03:16] LABS: Troponin I 0.064 ng/mL (0.01-0.034)
[2018-08-18] MEDS: SODIUM CHLORIDE 0.9% 1,000 ML 100 ML IV (07:49)
[2018-08-18 07:50] VITALS: BP 147/78; PULSE 93; RESP 20; TEMP 36.5; O2SAT 100; O2SAT 98
[2018-08-18] MEDS: ASPIRIN 81 MG TAB PO (07:59)
[2018-08-18] MEDS: LISINOPRIL 20 MG TABLET PO (07:59)
--- NOTE | 2018-08-18 10:30 | CM.DANOTE ---
Patient is a 67 year old female who was admitted on 08/17/18 for Dizzy. Pt has MCR and [employer] for insurance and her PCP is Dr. Oscar Bolton. EMR was reviewed. Per MD, pt's symptoms seem to have resolved and ordered an Echo for today as pt is requesting to d/c home today if possible. Pt's Urine Screen came back positive for antidepressant, amphetamine, and THC although pt denies THC use but no further concerns at this time regarding drug use as the others are from prescribed medications. SW met bedside with pt and spouse and explained role and updated white board and pt confirms that she lives at home with her in [place] and is Independent with ADL's at baseline, works, drives and denies any hx of HH or SNF. Pt preference is to d/c home today if possible and pending Echo Results. Plan: SW to follow for likely pt d/c home today via spouse POV pending Echo results. No needs anticipated at this time. UMBERTO Puga Discharge Planning/Care Management CM Discharge Assessment Start: 08/18/18 10:26 Freq: Status: Active Protocol: Document 08/18/18 10:26 BF (Rec: 08/18/18 10:30 [id number]) Discharge Planning Assessment Assigned Hot Tar Roofer UMBERTO Diaz Advance Directives? No History Provided By Patient Significant Other Medical Record Has Patient been admitted in last 30 No days? Prior Living Arrangements House Household Members spouse Type of transporation used prior to Drives own vehicle admit Independent with ADL's Yes Is patient alert and oriented? Yes Caregiver for Another No Comment Likely home no needs pending Echo results today Barriers to Discharge No Discharge Plan Home Transportation Arrangement Spouse bedside and can provide transport Referrals Initiated None needed Whiteboard Updated in Patient Room with Yes name and ext. # of Hot [employer] Roofer Review Status In Process Please Provide Date Initial DC 08/18/18 Assessment Was Performed Next Review Type Continued Stay Review
[2018-08-18 11:30] VITALS: BP 134/71; PULSE 83; RESP 24; TEMP 36.8; O2SAT 98
--- NOTE | 2018-08-18 15:33 | PM.DS.1 ---
History of Present Illness Date Patient Seen: 08/17/18 Chief complaint: dizzy Narrative: Written by Louie GUTIERREZP: HPI is obtained via direct patient interview. Patient appears very willing to discuss her symptoms and answer questions. however, on some occasions and details, was noted to be elusive, dismissive and minimally forthcoming. The patient is a 67-year-old female with PMH significant for HTN (dx 2014), dyslipidemia, interstitial cystitis, ADD, depression, OA, spinal stenosis, and chronic back pain. patient presented to the ED out to be evaluated for dizziness. Patient has woke up this morning in her usual state of health. Her mornings fairly uneventful, she did not eat, but did drink coffee and was starting to . She was in preparation to exercise on stationary bike. Having a slow start, started pedaling at a slow pace what patient describes as not enought to get up the heart rate; also, reading a book. Notes developing sudden onset of what she describes pages looked like floating. Specifically denied double vision and blurry vision. She attempted to get off the bike, and as she put her leg on the ground she felt that she was unable to keep herself, describes her legs feeling like rubber. She did not fall or had a syncopal event. She crouched down to the floor and crawled into the bedroom, then was able to stand up and make her way outside by using the wall for support. When outside, she sat down to rest, at that time noted return of the headache. Also, became nauseated and had dry heaves w/o overt episodes of vomiting. At time of the event patient had bilateral lower extremity weakness, she denies significant weakness of upper extremities. Associated symptoms included flushing, feeling hot, diaphoresis, nausea, and dry heaving. patient denies experiencing chest, neck, jaw, or extremity pain. There was no palpitations, dyspnea, or extremity paresthesia / heaviness. In recent weeks patient has had some intermittent flu-like symptoms and sinus congestion. no fever or chills. No cough. Also denies exertional dyspnea, peripheral edema, and PND. No headache prior to the event. However, she does note a brief episode (lasting seconds) of headache shortly after awakening and then again after the event. Patient reports intermittent and more frequent episodes of headache in the past 6 months. Reports having some headaches in childhood/ young adulthood, but then notes a 10-15 year headache free period, until 6 months ago. Describes headaches as du and constant, localized over frontal aspect of the head, do not radiate. Typically, improved with oral analgesics (ie takes Tylenol). 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 More recently has been working more that usual, 4 days a week (days overall longer). No known recent head trauma. However she does head trauma 30 years ago, which was precipitated by a one time life event of a spontaneous seizure. No further seizure recurrence. Patient is known to take Adderall extended release, 30 mg daily. Last taken on Sunday. Patient was diagnosed with high blood pressure 5 years ago by report. She was started off on 5 mg of lisinopril daily. She was then titrated to 10 mg, and in the past 3 months to 20 mg. Per patient, it was explained to her, that the increase from 10-20 mg was not due to BP being elevated, but rather to increase the duration of the medication, noted to last longer at a 20 mg dose. patient does not typically check her blood pressure at home, previously notes it to be normal in the 130/70 mmHg range. She does note having a follow-up with her PCP on and BP at that time was 114/68 mmHg. Patient is not overweight, BMI 22.5. She does have dyslipidemia, poorly controlled. Lipid profile from 10/24/2017 revealed cholesterol 258, LDL 137, HDL 104, and triglycerides 84. FHx significant for cardiac disease in father and stroke in sister. Admits to remote history of tobacco use, a total of 2-3 years, and recreational drug use in childhood / young adulthood. Specifically denied current use of tobacco, recreational drugs, and marijuana. Denies use of alcohol. No prior history of an echocardiogram , a stress test or cardiac catheterization. Reports history of interstitial cystitis. Symptoms have been well-controlled with nortriptyline. several days ago experiencing urinary discomfort. Patient attributed this to routine symptoms of cystitis, she has taken OTC equivalent of AZO and notes symptoms to have improved / resolved at this time. Discharge Providers Date of admission: 08/17/18 15:34 Discharge Date: 08/18/18 Primary care physician: Oscar Bolton MD Discharge provider: Kacey Simpson DO Summary Discharge Diagnosis: 1. Acute elevated troponin, present on admission. Resolving. 2. Acute dizziness, not present on admission. Resolved. 3. Hypertension, sub-optimally controlled, present on admission. Active. 4. Dyslipidemia, chronic and suboptimally controlled, present on admission. Active. 5. Attention deficit disorder, chronic, present on admission. Stable. 6. Depression, chronic, present on admission. Stable. Hospital Course: 1. Acute elevated troponin, present on admission. Resolving. -Likely due to demand ischemia from exercising and stimulant. Possible arrhythmia. -No angina. -EKG demonstrated normal sinus rhythm and no acute ischemic changes x2. Monitored closely on telemetry. No ectopy. -Trend serial troponins and peaked at 0.090 and trended down. -Risked stratified with hemoglobin A1C at 5.8% indicative of prediabetes and fasting lipid panel which demonstrated poor control with Total cholesterol 226, triglycerides 109, LDL 130 (goal < 100), and HDL 74. -Received aspirin 324 mg x1. Continued aspirin 81 mg daily and switched simvastatin to atorvastatin 40 mg daily at bedtime and monitor outpatient. -Echocardiogram demonstrated left ventricle is normal in size, wall thickness, and systolic function without any focal wall motion abnormalities with the ejection fraction visually estimated to be 65-70%. Diastolic parameters suggest probable normal left ventricular diastolic function and normal filling pressures. The right ventricle is normal in size and function. Pulmonary artery pressures cannot be estimated because of the lack of a measurable TR jet velocity but the IVC suggests a CVP of around 3 mmHg. Both atria are normal in size. There is moderate aortic valve sclerosis but no hemodynamically significant aortic stenosis. There is no significant valvular heart disease. -Recommended outpatient follow-up as she is intermediate to high risk with cardiac risk factors of hypertension, hyperlipidemia, prediabetes, and family history. Discussed marijuana and CBD use (which she denied initially and readily endorsed upon my inquiry) recommended cessation. Also discussed Adderall and recommended discontinuation. 2. Acute dizziness, not present on admission. Resolved. -Patient presented after abrupt onset dizziness while exercising which resolved prior to admission. No history of palpitations, dyspnea, or syncopal events; no recurrence during hospitalization. -DDx: vertigo, thyroid disorder, arrhythmia, hypoglycemia, anxiety, TIA -Echocardiogram as above and without obvious source for dizziness. -Recommend TSH check as did not get performed and possibly holter or event if symptoms recur. 3. Hypertension, sub-optimally controlled, present on admission. Active. Blood pressure was mildly elevated during hospitaliztion SBP's 130-150s. -Continue lisinopril at 20 mg daily and may need to be increased to 40 mg daily. Recommend close monitoring and possibly ambulatory blood pressure monitor. 4. Dyslipidemia, chronic and suboptimally controlled, present on admission. Active. -Switched patients simvastatin to atorvastatin as above. 5. Attention deficit disorder, chronic, present on admission. Stable. -Held Adderall as it may be contributing to a cardiac arrhythmia and recommended discontinuation as above. -Concern for abuse/ overuse. 6. Depression, chronic, present on admission. Stable. -Continued home venlafaxine. Status at Discharge Functional status at discharge: independent ambulation Overall status at discharge: patient is back to baseline Exam Vital Signs (past 8 hours): - 08/18/18 07:50 08/18/18 11:30 Temperature 97.7 F 98.2 F Pulse Rate 93 H 83 Respiratory Rate 20 24 Blood Pressure 147/78 H 134/71 Pulse Oximetry 100 98 Oxygen Delivery Method Room Air Oxygen Flow Rate 0 Narrative Exam Narrative: General: Older female sitting in bedside chair and in no acute distress, well-developed, well-nourished, appropriately interactive. HEENT: Normocephalic, atraumatic. External ears without defect. Pupils equal, round, and reactive to light. Anicteric sclerae, moist conjunctivae, and no lid lag. Oropharynx free of erythema and cobble stoning with moist mucosa. Slight facial asymmetry. Neck: Supple with full range of motion. No jugular venous distension. No bruits. No lymphadenopathy or thyromegaly. Cardiovascular: Regular rate and rhythm with no murmurs, rubs, or gallops appreciated Pulmonary: Clear to auscultation bilaterally with no crackles, wheezes, or rhonchi. Normal respiratory effort with no use of accessory muscles. Abdomen: Soft, bowel sounds present, nontender, nondistended. No hepatosplenomegaly or masses appreciated. Extremities: No clubbing, cyanosis, or edema. Skin: Normal temperature, turgor, and texture; no rash, ulcers, or subcutaneous nodules appreciated. Neurological: Cranial nerves grossly intact. Normal muscle strength, tone, and bulk. Reflexes, coordination, and sensory function within normal limits. No known gait impairment. Psychiatric: Normal mood and affect. Alert and oriented to person, place, and time. Objective Labs Result Diagrams: 08/17/18 11:15 08/18/18 02:46 Labs: Laboratory Results - last 24 hr 08/17/18 08/17/18 08/17/18 13:39 21:03 21:03 Sodium Potassium Chloride Carbon Dioxide BUN Creatinine Estimated GFR BUN/Creatinine Ratio Glucose Hemoglobin A1c 5.8 Calcium Magnesium 1.9 Total Creatine Kinase 108 CK-MB (CK-2) 1.31 CK-MB (CK-2) Rel Index 1.2 L Troponin I 0.090 H Triglycerides Cholesterol LDL Cholesterol, Calc HDL Cholesterol Urine Opiates Screen Ur Oxycodone Screen Urine Methadone Screen Ur Barbiturates Screen U Tricyclic Antidepress Ur Phencyclidine Scrn Ur Amphetamines Screen U Methamphetamines Scrn Ur MDMA Scrn (Ecstasy) U Benzodiazepines Scrn Urine Cocaine Screen U Marijuana (THC) Screen 08/17/18 08/18/18 21:15 02:46 Sodium 140 Potassium 4.4 Chloride 107 Carbon Dioxide 29 BUN 11 Creatinine 0.90 Estimated GFR > 60.0 BUN/Creatinine Ratio 12.2 Glucose 101 Hemoglobin A1c Calcium 9.4 Magnesium 1.9 Total Creatine Kinase CK-MB (CK-2) CK-MB (CK-2) Rel Index Troponin I 0.064 H Triglycerides 109 Cholesterol 226 H LDL Cholesterol, Calc 130 H HDL Cholesterol 74 H Urine Opiates Screen Negative Ur Oxycodone Screen Negative Urine Methadone Screen Negative Ur Barbiturates Screen Negative U Tricyclic Antidepress Positive H Ur Phencyclidine Scrn Negative Ur Amphetamines Screen Positive H U Methamphetamines Scrn Negative Ur MDMA Scrn (Ecstasy) Negative U Benzodiazepines Scrn Negative Urine Cocaine Screen Negative U Marijuana (THC) Screen Positive H Discharge Plan Discharge Plan Patient Disposition: Home Discharge comment: You're being discharged home. Your simvastatin was changed to atorvastatin 40 mg daily at bedtime and you were prescribed aspirin 81 mg daily (take with food and plenty of water). I highly recommend discontinuing dextroamphetamine-amphetamine. Please follow-up with your PCP, Dr. Bolton, in the next 1 week regarding your hospitalization. Recommend you be referred for cardiac stress test. You had no arrhythmia while in the hospital but this may have been the cause of your symptoms. If your symptoms recur you may need to wear a heart monitor. Your blood pressure was slightly elevated despite being on lisinopril 20 mg daily and you may need to have this monitored outpatient with an ambulatory blood pressure monitor. Your echocardiogram did not demonstrate heart failure or any valvular abnormalities other than mild aortic sclerosis without stenosis. Discharge Med Rec/Prescriptions Prescriptions: New aspirin 81 mg tablet,delayed release (DR/EC) 81 mg PO DAILY Qty: 30 RF: 0 atorvastatin 40 mg tablet 40 mg PO BEDTIME Qty: 30 RF: 0 Continued gabapentin 300 mg capsule 300 mg PO DAILY RF: 0 lisinopril 20 mg tablet 20 mg PO QDAY Qty: 90 RF: 3 venlafaxine [Effexor XR] 75 mg capsule,extended release 24hr 75 mg PO Q DAY Qty: 90 RF: 3 Estring 1 EACH ring 2 mg Vaginal SEE INSTRUCTIONS Qty: 1 RF: 3 zolpidem 10 mg tablet 10 mg PO HS Qty: 90 RF: 1 nortriptyline 10 mg capsule 10 mg PO BEDTIME Qty: 90 RF: 0 cyclobenzaprine 10 MG tablet 10 mg PO TIDP PRN (Reason: Muscle Pain) RF: 0 Discontinued dextroamphetamine-amphetamine 10 mg tablet 10 mg PO QDAY Qty: 30 RF: 0 dextroamphetamine-amphetamine [Adderall XR] 30 mg capsule,extended release 24hr 30 mg PO Q DAY Qty: 30 RF: 0 simvastatin 20 mg tablet 10 mg PO HS RF: 0 Follow up/Referrals: Oscar Bolton MD [Primary Care Provider] - 1 Week Provider Discharge Instructions Diet: Low-fat, Low-sodium and Low-cholesterol Activity: Activity as tolerated Visit Report/Discharge Packet Instructions: DI for Syncope in Adults (Fainting), The DASH Diet, Essential Hypertension, DI for Arrhythmias, DI for High Cholesterol-Adult Discharge Data Primary Care Provider: Oscar Bolotn Attending Provider: Kacey Simpson Admit Date/Time: 08/17/18 15:34 Discharges patient from system. Discharge Date/Time: 08/18/18 16:06
== END 2018-08-18 16:06 | disposition home or self-care (01) ==
LOC: ED 15:05 → AC 15:36
PROVIDERS: Nurse Practitioner Gerontology; Admitting Provider Internal Medicine; Emergency Provider Emergency Medicine; PCP Student in an Organized Health Care Education/Training Program; Visit Provider Internal Medicine
DX: R42 Dizziness and giddiness (principal); R55 Syncope and collapse; R51 Headache; E78.5 Hyperlipidemia, unspecified; F32.9 Major depressive disorder, single episode, unspecified; R82.5 Elevated urine levels of drugs, medicaments and biological substances; R74.8 Abnormal levels of other serum enzymes
CPT/HCPCS: 36415; 36591; 70450; 71046; 80048; 80053; 80061; 80305; 81001; 82550; 82553; 83036; 83735; 84484; 85025; 93005; 93306; 96360; 96361; 99283; 99285; G0378

== ENCOUNTER → 2018-09-24 08:20 | Outpatient (CLI) | payer MEDICARE, OTHER, SELFPAY ==
[2018-08-17 17:10] VITALS: BMI 22.4
--- NOTE | 2018-09-24 09:26 | PM.TREADMILL ---
Cardiac Stress Test Report Referral & Results Date Patient Seen: 09/24/18 Requesting provider: Oscar Bolton Indication: Abnormal enzymes Rest ECG: Unremarkable Procedure Note: Today following both written and verbal informed consent the patient was exercised according to a standard Endy protocol patient went for a total of 7 minutes 4 seconds achieving a maximum heart rate of 139 maximum systolic blood pressure of 182. This is approximately 10.1 METS. Exercise was terminated at this point because of targets were met. Patient was also given Cardiolite through a previously started Hep-Lock IV by the nuclear security officer approximately 1 minute prior to the cessation of exercise. There are no ST-T segment changes Normal heart rate and blood pressure response to exercise Functional aerobic impairment rated-10% on the active scale are 10% better than average. Patient certainly could have continued longer however we met targets and I discontinued the test as above. Impression: No evidence of ischemia Excellent exercise capacity Please see perfusion imaging report as well Please note: Actual ECG tracings can be found in the PACS system.
--- NOTE | 2018-09-25 16:15 | DI.NM.S_ITS ---
DATE OF SERVICE: 09/24/2018 PROCEDURE: Exercise perfusion study. INDICATIONS: Dizziness with abnormal troponin with underlying hypertension, hyperlipidemia. RADIOPHARMACEUTICAL: 26.1 mCi technetium-99m Myoview IV was injected at stress and 25.7 mCi technetium-99m Myoview IV was injected at rest. CARDIAC STRESS: Patient underwent exercise perfusion study under the supervision of an attending staff. She walked on Endy protocol for 7 minutes 04 seconds, achieved 90% of target heart rate, normal blood pressure response, 10.1 METs of workload, and functional aerobic impairment of -10%. No significant symptoms were reported. Baseline EKG revealed sinus rhythm. Stress EKG did not reveal any convincing inducible ischemic changes. There were no significant arrhythmias. RAW DATA: There was breast shadow seen. Patient has history of breast implants. GATED STUDY: Resting LV ejection fraction 79%, and stress LV ejection fraction 85%. I don't see any obvious wall motion abnormalities. No transient ischemic dilatation. Resting end-diastolic volume is 67 mL. TID ratio is 1.12, which is within normal limits. Lung/heart ratio is 0.33, which is within normal limits. MYOCARDIAL PERFUSION SCAN: Stress supine and resting supine as well as stress prone revealed small-sized mildly decreased perfusion of distal anterior wall. It is a predominantly fixed defect. There is no obvious reversible ischemia. CONCLUSION: 1. No obvious reversible ischemia. 2. Patient has predominantly fixed small -sized distal anterior wall defect. Patient has history of breast implants. Breast shadow was seen during raw images. Anterior wall is moving well. No obvious wall motion abnormalities. Normal wall motion goes against the diagnosis of previous transmural myocardial infarction. On surface EKG, no obvious evidence of anterior wall myocardial infarction (NM). Hence, most likely we are dealing with persistent tissue attenuation artifact. Overall this is a low-risk exercise myocardial perfusion study. Clinical correlation is recommended. You Tiffany - ZAHRA/aravind/ doc#: [id number]/job#: [id number] dd: 09/25/2018 12:25:00 dt: 09/25/2018 16:04:00 DICTATING MD/COPIES TO: Jo Nelson MD COPIES MNE: AVIVA
== END ==
PROVIDERS: PCP Student in an Organized Health Care Education/Training Program; Visit Provider Student in an Organized Health Care Education/Training Program
DX: R00.2 Palpitations (principal); R42 Dizziness and giddiness; I10 Essential (primary) hypertension; R74.8 Abnormal levels of other serum enzymes
CPT/HCPCS: 78452; 93016; 93017; 93018; A9502

== ENCOUNTER → 2019-01-31 12:01 | Outpatient (CLI) | payer MEDICARE, OTHER, SELFPAY ==
[2018-08-17 17:10] VITALS: BMI 22.4
[2019-01-31 13:19] LABS: Alanine Aminotransferase 19 IU/L (9-52); Albumin 4.4 g/dL (3.5-5.0); Albumin Globulin Ratio 1.9 (1.0-2.8); Alkaline Phosphatase 102 U/L (38-126); Aspartate Aminotransferase 36 IU/L (14-36); Bilirubin Total 0.5 mg/dL (0.2-1.3); Bilirubin Unconjugated 0.2 mg/dL (0.0-1.1); Cholesterol 198 mg/dL (140-199); Globulin 2.3 g/dL (1.7-4.1); HEMOLYSIS < 15 (0-50); Total Protein 6.7 g/dL (6.3-8.2); Triglycerides 68 mg/dL (35-150)
[2019-01-31 13:39] LABS: HDL Cholesterol 118 mg/dL (40-60); LDL Cholesterol Calculated 66 mg/dL (<100)
[2019-01-31 16:53] LABS: Vitamin D 25 Hydroxy (D3) 72.9 ng/mL (30.0-100.0)
== END ==
PROVIDERS: PCP Student in an Organized Health Care Education/Training Program; Visit Provider Student in an Organized Health Care Education/Training Program
DX: E78.00 Pure hypercholesterolemia, unspecified (principal); E55.9 Vitamin D deficiency, unspecified; Z79.899 Other long term (current) drug therapy
CPT/HCPCS: 36415; 80061; 80076; 82306

== ENCOUNTER → 2019-05-14 15:22 | Outpatient (CLI) | payer MEDICARE, OTHER, SELFPAY ==
[2018-08-17 17:10] VITALS: BMI 22.4
--- NOTE | 2019-05-14 | DI.MRI.S_ITS ---
PROCEDURE: MR KNEE LT WO CON INDICATIONS: Unspecified internal derangement of right knee TECHNIQUE: Noncontrast sagittal PD fast spin echo and T2 fast spin echo with fat saturation, sagittal 3-D FLASH with fat saturation; coronal T1 spin echo and PD fast spin echo with fat saturation, and axial PD fast spin echo with fat saturation through the knee. COMPARISON: None. FINDINGS: Image quality: Excellent. Menisci: There is medial extrusion of the medial meniscus. There is radial tearing of the posterior horn medial meniscus at the meniscal root ligament insertion site. There is attachment of the medial meniscal body and posterior horn. Linear horizontally oriented high T2 signal intensity within the medial meniscal body is present, demonstrating inferior articular surface extension. Lateral meniscus is intact. Cruciate ligaments: The anterior and posterior cruciate ligaments appear intact. Medial structures: The medial collateral ligament appears intact. Visualized portions of the pes anserinus tendons appear normal. No abnormal bursal fluid. Lateral structures: The lateral collateral ligament demonstrates moderate T2 signal alteration within its posterior fibers. The long and short heads of the biceps femoris tendon appear intact. The popliteus tendon appears normal. Iliotibial band appears normal. Anterior structures: The quadriceps and patellar tendons appear intact. Patellar alignment is normal. No femoral trochlear dysplasia or ventral trochlear prominence. No edema in the infrapatellar fat pad. Bones and cartilage: No bone marrow contusions or fractures. Mild tricompartmental periarticular osteophyte formation is present. Severe diffuse articular cartilage loss overlies the weightbearing aspect of the medial femoral condyle and medial tibial plateau. Mild articular cartilage loss diffusely overlies the weightbearing aspects of the lateral femoral condyle and lateral tibial plateau. Focal region of severe articular cartilage loss overlies the patellar apex measuring 5 mm, with mild underlying degenerative marrow edema. Articular cartilage fibrillation and overlies the lateral patellar facet inferiorly. Moderate articular cartilage loss overlies the medial patellar facet. Joint space: There is a small knee joint effusion and a small Kim's cyst. Small ganglion cyst along the popliteus. Normal appearing synovial plicae are incidentally noted. IMPRESSION: 1. Tricompartmental osteoarthritis with associated articular cartilage loss. 2. Multifocal tearing of the medial meniscus. 3. Partial thickness tear of the lateral collateral ligament. 4. Knee joint effusion, Kim's cyst, and ganglion cyst along the popliteus. Dictated by: Atul Guevara M.D. on 05/14/2019 at 16:33 Approved by: Atul Guevara M.D. on 05/14/2019 at 16:37
== END ==
PROVIDERS: PCP Student in an Organized Health Care Education/Training Program; Visit Provider Orthopaedic Surgery
DX: S83.242A Other tear of medial meniscus, current injury, left knee, initial encounter (principal); S83.422A Sprain of lateral collateral ligament of left knee, initial encounter; M17.12 Unilateral primary osteoarthritis, left knee; M25.462 Effusion, left knee; M71.22 Synovial cyst of popliteal space [Baker], left knee; M67.462 Ganglion, left knee
CPT/HCPCS: 73721

== ENCOUNTER → 2019-08-06 10:07 | Outpatient (CLI) | payer MEDICARE, OTHER, SELFPAY ==
[2019-07-16 13:38] VITALS: BMI 22.4
--- NOTE | 2019-08-06 | DI.MG.S_ITS ---
BILATERAL DIGITAL SCREENING MAMMOGRAM 3D/2D WITH CAD WITH AUGMENTATION: 08/06/2019 CLINICAL: Routine screening. Comparison is made to exams dated: 07/17/2018 mammogram - [facility], 11/17/2016 mammogram, and 02/23/2015 mammogram - [facility]. The tissue of both breasts is extremely dense, which lowers the sensitivity of mammography. Current study was also evaluated with a Computer Aided Detection (CAD) system. Bilateral breast implants are intact. There are benign calcifications in both breasts. No significant masses, calcifications, or other findings are seen in either breast. There has been no significant interval change. IMPRESSION: There is no mammographic evidence of malignancy. A 1 year screening mammogram is recommended. This exam was interpreted at Station ID: [id number]. NOTE: For mammograms, a report in lay terms will be sent to the patient. Approximately 15% of breast malignancies will not be visualized mammographically. In the management of a palpable breast mass, a negative mammogram must not discourage biopsy of a clinically suspicious lesion. Electronically Signed By: Octavio casas/cindy:08/06/2019 13:01:57 letter sent: Normal Exam ACR BI-RADS Category 2: Benign Finding(s) 3342F
== END ==
PROVIDERS: PCP Student in an Organized Health Care Education/Training Program; Referring Provider Student in an Organized Health Care Education/Training Program; Visit Provider Student in an Organized Health Care Education/Training Program
DX: Z12.31 Encounter for screening mammogram for malignant neoplasm of breast (principal); Z13.820 Encounter for screening for osteoporosis; M85.852 Other specified disorders of bone density and structure, left thigh; Z78.0 Asymptomatic menopausal state; Z82.62 Family history of osteoporosis; Z87.891 Personal history of nicotine dependence; Z91.89 Other specified personal risk factors, not elsewhere classified
CPT/HCPCS: 77063; 77067; 77080; 77081

== ENCOUNTER → 2020-01-16 11:39 | Outpatient (CLI) | payer MEDICARE, OTHER, SELFPAY ==
[2019-07-16 13:38] VITALS: BMI 22.4
[2020-01-16 13:35] LABS: Hepatitis B Surface Antigen NEGATIVE s/c (NEGATIVE)
[2020-01-16 13:54] LABS: Hep C Virus Ab w/Reflex Quant NEGATIVE s/c (NEGATIVE)
[2020-01-17 04:12] LABS: HIV Ag/Ab, 4th Gen Non Reactive (Non Reactive)
== END ==
PROVIDERS: PCP Student in an Organized Health Care Education/Training Program; Referring Provider Orthopaedic Surgery; Visit Provider Orthopaedic Surgery
DX: Z77.21 Contact with and (suspected) exposure to potentially hazardous body fluids (principal)
CPT/HCPCS: 36415; 86803; 87340; 87389

== ENCOUNTER → 2020-03-02 15:22 | Outpatient (CLI) | payer MEDICARE, OTHER, SELFPAY ==
[2019-07-16 13:38] VITALS: BMI 22.4
[2020-03-02 17:09] LABS: Add Manual Diff / Slide Review NO; Basophils Absolute Auto 0 /uL (0-100); Basophils Percent Auto 0.4 % (0-2); Eosinophils Absolute Auto 200 /uL (0-450); Eosinophils Percent Auto 3.1 % (2-4); Hematocrit 35.8 % (36-46); Hemoglobin 11.9 g/dL (12.0-16.0); Lymphocytes Absolute Auto 2000 /uL (1100-4500); Mean Corpuscular HGB Conc 33.2 % (30-36); Mean Corpuscular Hemoglobin 30.4 PG (26-34); Mean Corpuscular Volume 91.6 fL (80-100); Monocytes Absolute Auto 600 /uL (0-900); Monocytes Percent Auto 9.2 % (3-14); Neutrophils Absolute Auto 3300 /uL (1500-7000); Neutrophils Percent Auto 54.3 % (50-75); Platelet Count 323 X10^3/uL (150-400); Red Cell Distribution Width 13.3 % (11.6-14.8); White Blood Cell Count 6.1 X10^3/uL (4.5-11.0)
[2020-03-02 17:21] LABS: Carbon Dioxide 31 mmol/L (22-32); Chloride 103 mmol/L (98-107); HEMOLYSIS < 15 (0-50); Potassium 4.6 mmol/L (3.4-5.1); Sodium 138 mmol/L (137-145)
== END ==
PROVIDERS: Orthopaedic Surgery; PCP Student in an Organized Health Care Education/Training Program; Referring Provider Student in an Organized Health Care Education/Training Program; Visit Provider Student in an Organized Health Care Education/Training Program
DX: Z01.818 Encounter for other preprocedural examination (principal); Z01.812 Encounter for preprocedural laboratory examination
CPT/HCPCS: 36415; 80051; 85025

== ENCOUNTER → 2020-08-30 10:31 | Outpatient (CLI) | payer MEDICARE, OTHER, SELFPAY ==
[2019-07-16 13:38] VITALS: BMI 22.4
--- NOTE | 2020-08-30 | DI.MG.S_ITS ---
BILATERAL DIGITAL SCREENING MAMMOGRAM 3D/2D WITH CAD WITH AUGMENTATION: 08/30/2020 CLINICAL: Routine screening. Comparison is made to exams dated: 08/06/2019 mammogram, 07/17/2018 mammogram - [facility], 11/17/2016 mammogram, and 02/23/2015 mammogram - [facility]. The tissue of both breasts is extremely dense, which lowers the sensitivity of mammography. Current study was also evaluated with a Computer Aided Detection (CAD) system. Bilateral breast implants are intact. There are benign vascular calcifications in both breasts. No significant masses, calcifications, or other findings are seen in either breast. There has been no significant interval change. IMPRESSION: BENIGN There is no mammographic evidence of malignancy. A 1 year screening mammogram is recommended. This exam was interpreted at Station ID: [id number]. NOTE: For mammograms, a report in lay terms will be sent to the patient. Approximately 15% of breast malignancies will not be visualized mammographically. In the management of a palpable breast mass, a negative mammogram must not discourage biopsy of a clinically suspicious lesion. Electronically Signed By: Roscoe mejias/cindy:08/30/2020 12:09:55 letter sent: Normal Exam ACR BI-RADS Category 2: Benign Finding(s) [id number]
== END ==
PROVIDERS: PCP Student in an Organized Health Care Education/Training Program; Referring Provider Student in an Organized Health Care Education/Training Program; Visit Provider Student in an Organized Health Care Education/Training Program
DX: Z12.31 Encounter for screening mammogram for malignant neoplasm of breast (principal)
CPT/HCPCS: 77063; 77067

== ENCOUNTER → 2021-01-17 13:23 | Outpatient (CLI) | payer MEDICARE, OTHER, SELFPAY ==
[2021-01-12 12:26] VITALS: BMI 22.4
--- NOTE | 2021-01-17 13:26 | DI.RAD.S_ITS ---
PROCEDURE: XR CHEST 2V INDICATIONS: Pre-operative cardiovascular screening TECHNIQUE: 2 views of the chest were acquired. COMPARISON: [facility], , XR CHEST 2V, 08/17/2018, 21:07. FINDINGS: Surgical changes and devices: None. Lungs and pleura: Lungs are clear. No pleural effusions or pneumothorax. Mediastinum: Mediastinal contours are normal. Heart size is normal. Bones and chest wall: No suspicious bony abnormalities. Soft tissues appear unremarkable. IMPRESSION: No acute cardiopulmonary pathology. Dictated by: Jese Cordoba M.D. on 01/17/2021 at 14:36 Approved by: Jese Cordoba M.D. on 01/17/2021 at 14:47
[2021-01-17 14:35] LABS: Add Manual Diff / Slide Review NO; Basophils Absolute Auto 0 /uL (0-100); Basophils Percent Auto 0.3 % (0-2); Eosinophils Absolute Auto 0 /uL (0-450); Eosinophils Percent Auto 0.1 % (2-4); Hematocrit 35.8 % (36-46); Hemoglobin 11.8 g/dL (12.0-16.0); Lymphocytes Absolute Auto 1700 /uL (1100-4500); Lymphocytes Percent Auto 18.7 % (25-40); Mean Corpuscular HGB Conc 33.1 % (30-36); Mean Corpuscular Hemoglobin 30.9 PG (26-34); Mean Corpuscular Volume 93.3 fL (80-100); Monocytes Absolute Auto 400 /uL (0-900); Monocytes Percent Auto 4.6 % (3-14); Neutrophils Absolute Auto 6900 /uL (1500-7000); Neutrophils Percent Auto 76.3 % (50-75); Platelet Count 292 X10^3/uL (150-400); Red Blood Cell Count 3.83 X10^6/uL (4.0-5.2); Red Cell Distribution Width 13.3 % (11.6-14.8)
[2021-01-17 14:43] LABS: Alanine Aminotransferase 16 IU/L (<35); Albumin 4.3 g/dL (3.5-5.0); Albumin Globulin Ratio 1.7 (1.0-2.8); Alkaline Phosphatase 68 U/L (38-126); Aspartate Aminotransferase 29 IU/L (14-36); BUN Creatinine Ratio 26.2 (6-22); Bilirubin Total 0.3 mg/dL (0.2-1.3); Blood Urea Nitrogen 22 mg/dL (7-17); Carbon Dioxide 28 mmol/L (22-32); Chloride 104 mmol/L (98-107); Estimated Glomerular Filt Rate > 60.0 mL/min (>60); Globulin 2.5 g/dL (1.7-4.1); Glucose 107 mg/dL (80-110); HEMOLYSIS < 15 (0-50); Potassium 4.5 mmol/L (3.4-5.1); Sodium 139 mmol/L (137-145); Total Protein 6.8 g/dL (6.3-8.2)
== END ==
PROVIDERS: PCP Student in an Organized Health Care Education/Training Program; Referring Provider Student in an Organized Health Care Education/Training Program; Visit Provider Student in an Organized Health Care Education/Training Program
DX: Z01.810 Encounter for preprocedural cardiovascular examination (principal); M54.9 Dorsalgia, unspecified
CPT/HCPCS: 36415; 71046; 80053; 85025; 93005

== ENCOUNTER → 2021-02-07 08:38 | Outpatient (CLI) | payer MEDICARE, OTHER, SELFPAY ==
[2021-01-12 12:26] VITALS: BMI 22.4
[2021-02-07 11:35] LABS: COVID-19 CEPHEID PCR (VTM/NP) Negative (Negative)
== END ==
PROVIDERS: PCP Student in an Organized Health Care Education/Training Program; Visit Provider Nurse Practitioner Family
DX: Z01.812 Encounter for preprocedural laboratory examination (principal); Z20.822 Contact with and (suspected) exposure to COVID-19
CPT/HCPCS: C9803; U0003

== ENCOUNTER → 2021-05-06 16:18 | Outpatient (CLI) | payer MEDICARE, OTHER, SELFPAY ==
[2021-01-12 12:26] VITALS: BMI 22.4
[2021-05-06 18:18] LABS: Erythrocyte Sedimentation Rate 12 MM/HR (0-20)
[2021-05-06 19:16] LABS: C-Reactive Protein Quant < 0.5 mg/dL (<1.0)
[2021-05-06 19:43] LABS: TSH w/ Reflex to FT4 1.39 uIU/mL (0.47-4.68)
[2021-05-07 08:30] LABS: Immunoglobulin A 111 mg/dL (87-352)
[2021-05-07 15:52] LABS: Tissue Transglutaminase IgA <2 U/mL (0-3)
== END ==
PROVIDERS: PCP Student in an Organized Health Care Education/Training Program; Referring Provider Internal Medicine Gastroenterology; Visit Provider Internal Medicine Gastroenterology
DX: Z79.891 Long term (current) use of opiate analgesic (principal); K59.1 Functional diarrhea; R10.9 Unspecified abdominal pain
CPT/HCPCS: 36415; 82784; 83516; 84443; 85651; 86140

== ENCOUNTER → 2021-05-07 13:57 | Outpatient (CLI) | payer MEDICARE, OTHER, SELFPAY ==
[2021-01-12 12:26] VITALS: BMI 22.4
== END ==
PROVIDERS: PCP Student in an Organized Health Care Education/Training Program; Referring Provider Physician Assistant; Visit Provider Physician Assistant
DX: K59.1 Functional diarrhea (principal); R10.9 Unspecified abdominal pain; Z79.891 Long term (current) use of opiate analgesic
CPT/HCPCS: 87045; 87493; 87899

== ENCOUNTER → 2021-05-11 09:33 | Outpatient (CLI) | payer MEDICARE, OTHER, SELFPAY ==
[2021-01-12 12:26] VITALS: BMI 22.4
[2021-05-11 11:14] LABS: COVID19 -Nasal RAPID Negative (Negative)
== END ==
PROVIDERS: PCP Student in an Organized Health Care Education/Training Program; Visit Provider Physician Assistant
DX: Z20.822 Contact with and (suspected) exposure to COVID-19 (principal); M85.852 Other specified disorders of bone density and structure, left thigh; Z78.0 Asymptomatic menopausal state; Z82.62 Family history of osteoporosis; Z87.891 Personal history of nicotine dependence
CPT/HCPCS: 77080; 87635; C9803

== ENCOUNTER → 2021-05-11 14:03 | Outpatient (CLI) | payer MEDICARE, OTHER, SELFPAY ==
[2021-01-12 12:26] VITALS: BMI 22.4
--- NOTE | 2021-05-11 14:08 | DI.RAD.S_ITS ---
PROCEDURE: XR DEXA AXIAL SKELETON INDICATIONS: Osteoporosis monitoring COMPARISON: [facility], CR, XR DEXA AXIAL SKELETON, 08/06/2019, 10:43. FINDINGS: This blank DEXA report has been sent in error by the PACS system. The correct and complete report will be forthcoming in 1-2 days. Thank you for your patience and understanding. Dictated by: Sharonda Ma MD, PhD on 05/11/2021 at 18:23 Approved by: Sharonda Ma MD, PhD on 05/11/2021 at 18:24
== END ==
PROVIDERS: PCP Student in an Organized Health Care Education/Training Program; Referring Provider Student in an Organized Health Care Education/Training Program; Visit Provider Student in an Organized Health Care Education/Training Program
DX: Z78.0 Asymptomatic menopausal state (principal); M85.852 Other specified disorders of bone density and structure, left thigh; Z82.62 Family history of osteoporosis; Z87.891 Personal history of nicotine dependence
CPT/HCPCS: 77080

== ENCOUNTER → 2021-07-12 14:24 | Outpatient (CLI) | payer MEDICARE, OTHER, SELFPAY ==
[2021-01-12 12:26] VITALS: BMI 22.4
--- NOTE | 2021-07-12 14:25 | DI.RAD.S_ITS ---
PROCEDURE: XR CERVICAL SPINE 4V OR 5V INDICATIONS: NECK PAIN TECHNIQUE: 5 views of the cervical spine were acquired. COMPARISON: None. FINDINGS: Bones: No fractures or dislocations to the C7 level. No suspicious bony lesions. Posterior fusion hardware at C3-C6. Multilevel disc space narrowing and endplate osteophyte formation throughout the mid and lower cervical spine. Facet hypertrophy throughout the mid and lower cervical spine. Moderate to severe multilevel foraminal stenoses throughout the mid and lower cervical spine. Soft tissues: Prevertebral soft tissues are normal in thickness. IMPRESSION: 1. Postsurgical sequelae. 2. Multilevel degenerative disc and facet disease. Dictated by: Atul Guevara M.D. on 07/12/2021 at 16:27 Approved by: Atul Guevara M.D. on 07/12/2021 at 16:53
== END ==
PROVIDERS: PCP Student in an Organized Health Care Education/Training Program; Referring Provider Physical Medicine & Rehabilitation; Visit Provider Physical Medicine & Rehabilitation
DX: M48.02 Spinal stenosis, cervical region (principal); M50.30 Other cervical disc degeneration, unspecified cervical region; Z98.1 Arthrodesis status
CPT/HCPCS: 72050

== ENCOUNTER → 2021-08-23 12:55 | Outpatient (CLI) | payer MEDICARE, OTHER, SELFPAY ==
[2021-01-12 12:26] VITALS: BMI 22.4
--- NOTE | 2021-08-23 12:58 | DI.RAD.S_ITS ---
PROCEDURE: XR LUMBAR SPINE MIN 4V INDICATIONS: chronic progressive LBP TECHNIQUE: 5 views of the lumbar spine were acquired, including bilateral oblique views. COMPARISON: [facility], RG, MRI L-SPINE W/O CONTRAST, 08/04/2021, 15:38. [facility], , L-SPINE MINIMUM 4 VIEWS, 07/20/2012, 12:29. FINDINGS: Bones: 5 nonrib-bearing vertebrae are present. No vertebral body compression fractures. No suspicious bony lesions. Mild dextroconvex scoliotic curvature is seen. Minimal retrolisthesis is seen at L1-L2 and L2-L3. Minimal anterolisthesis is seen at L3-L4. Minimal retrolisthesis is seen at L4-L5. There is also minimal retrolisthesis at L5-S1. Moderate to severe disc space narrowing can be seen throughout the lumbar spine. Endplate irregularity and sclerosis are seen throughout, which are worst at L4-L5. Lower lumbar spine facet arthropathy is seen. Soft tissues: Overlying bowel gas pattern is normal. No suspicious soft tissue calcifications. Oblique images: No pars defects. IMPRESSION: Multiple levels of relatively prominent lumbar spine degenerative change can be seen film. Dictated by: Helder Chavez M.D. on 08/23/2021 at 12:42 Approved by: Helder Chavez M.D. on 08/23/2021 at 12:44
== END ==
PROVIDERS: PCP Student in an Organized Health Care Education/Training Program; Referring Provider Physical Medicine & Rehabilitation; Visit Provider Physical Medicine & Rehabilitation
DX: M48.062 Spinal stenosis, lumbar region with neurogenic claudication (principal); M47.816 Spondylosis without myelopathy or radiculopathy, lumbar region; M75.101 Unspecified rotator cuff tear or rupture of right shoulder, not specified as traumatic; M75.102 Unspecified rotator cuff tear or rupture of left shoulder, not specified as traumatic; M19.011 Primary osteoarthritis, right shoulder; M19.012 Primary osteoarthritis, left shoulder; M48.02 Spinal stenosis, cervical region; Z96.651 Presence of right artificial knee joint; Z98.1 Arthrodesis status
CPT/HCPCS: 72110; 99215

== ENCOUNTER → 2021-09-23 13:36 | Outpatient (CLI) | payer MEDICARE, OTHER, SELFPAY ==
[2021-01-12 12:26] VITALS: BMI 22.4
--- NOTE | 2021-09-23 | DI.MG.S_ITS ---
BILATERAL DIGITAL SCREENING MAMMOGRAM 3D/2D WITH CAD WITH AUGMENTATION: 09/23/2021 CLINICAL: Patient presents for routine screening. S/P bilateral augmentation. Comparison is made to exams dated: 08/30/2020 mammogram, 08/06/2019 mammogram, and 07/17/2018 mammogram - [facility]. The tissue of both breasts is extremely dense, which lowers the sensitivity of mammography. Current study was also evaluated with a Computer Aided Detection (CAD) system. Bilateral breast implants are stable. There are benign vascular calcifications in both breasts. No significant masses, calcifications, or other findings are seen in either breast. There has been no significant interval change. IMPRESSION: BENIGN There is no mammographic evidence of malignancy. A 1 year screening mammogram is recommended. This exam was interpreted at Station ID: [id number]. NOTE: For mammograms, a report in lay terms will be sent to the patient. Approximately 15% of breast malignancies will not be visualized mammographically. In the management of a palpable breast mass, a negative mammogram must not discourage biopsy of a clinically suspicious lesion. Electronically Signed By: Nighat de leon/cindy:09/23/2021 14:04:31 letter sent: Normal Exam ACR BI-RADS Category 2: Benign Finding(s) 3342F
== END ==
PROVIDERS: PCP Student in an Organized Health Care Education/Training Program; Referring Provider Student in an Organized Health Care Education/Training Program; Visit Provider Student in an Organized Health Care Education/Training Program
DX: Z12.31 Encounter for screening mammogram for malignant neoplasm of breast (principal); Z98.82 Breast implant status
CPT/HCPCS: 77063; 77067

== ENCOUNTER 2022-06-06 10:10 | Outpatient (CLI) | payer MEDICARE, OTHER, SELFPAY ==
[2021-01-12 12:26] VITALS: BMI 22.4
[2022-06-06] VITALS (9 sets, daily range): BP systolic 88–116; BP diastolic 51–65; PULSE 63–67; RESP 10–20; TEMP 36.5; O2SAT 96–100
--- NOTE | 2022-06-06 10:12 | DI.RAD.S_ITS ---
PROCEDURE: PAIN L INTERLAMINAR/CAUDAL INJ INDICATIONS: SPONDYLOSIS COMPARISON: [facility], RG, MRI L-SPINE W/O CONTRAST, 08/04/2021, 15:38. FINDINGS: Fluoroscopic spot filming was performed to verify placement of a spinal needle at the L3-L4 level, as labeled on the films. Appropriate location of the needle tip was confirmed by injection of iodinated contrast. IMPRESSION: Intraprocedural examination within normal limits. Dictated by: Helder Chavez M.D. on 06/06/2022 at 14:51 Approved by: Helder Chavez M.D. on 06/06/2022 at 14:52
[2022-06-06] MEDS: MIDAZOLAM 2 MG/2 ML VIAL IV (11:05)
[2022-06-06] MEDS: IOPAMIDOL 15 ML VIAL 3 ML INJ (11:07)
[2022-06-06] MEDS: DEXAMETHASONE 10 MG/ML VIAL 20 MG INJ (11:08)
[2022-06-06] MEDS: BETAMETHASONE 30 MG/5 ML MDV 6 MG INJ (11:08)
[2022-06-06] MEDS: BUPIVACAINE 0.5% (PF) 10 ML VIAL 5 ML SUBCUT (11:09)
--- NOTE | 2022-06-06 11:20 | P.PCN_ITS ---
Date/Time/Diagnoses Date of procedure: 06/06/22 Time of procedure: 11:20 Pre-procedure diagnosis: 1. HNP WITH RADICULAR FEATURES, 2. MULTILEVEL CENTRAL STENOSIS, Post-procedure diagnosis: same Procedure Notes Procedure: 1. FLUOROSCOPICALLY GUIDED CONTRAST CONTROLLED INTERLAMINAR EPIDURAL STEROID INJECTION - L3/4 Indications: Tiffany is referred by Dr. Bolton for treatment of Bilateral Foraminal Stenosis L>R LE symptoms. Physician: John Fernandez Total Fluoroscopy time (seconds): 9 Total sedation minutes: 10 Complications: none Procedure in detail & Post-procedure care: FINDINGS Multilevel Central Spinal Stenosis with Nerve Root Compression DESCRIPTION OF PROCEDURE Fluoroscopically guided, contrast-controlled L3/4 translaminar epidural steroid injection. Following review of allergy and review of potential side effects and complications, including, but not necessarily limited to, infection, allergic reaction, local tissue breakdown, temporary as well as permanent nerve injury, paralysis, stroke and possible , the patient indicated that the patient understood and agreed to proceed. An informed consent document was signed by the patient, witnessed by a nurse, and placed in the patient's chart. Additionally, other treatment options including modalities, medications, and physical therapy were reviewed with the patient. After review of previous anaesthesic history and IV conscious sedation the patient was deemed safe to proceed with today?s procedure with IV conscious sedation as ASA class II designation. Safety time-out was performed to confirm patient ID, procedure to be performed and site of procedure. IV sedation was accomplished with a combination of 2mg of Versed was administered by the RN after DO order, titrated to patient comfort during the course of the procedure while the patient remained responsive to all verbal commands. In the prone position, following sterile prep and drape of the lumbar region, the L3/4 translaminar space was identified fluoroscopically. The skin was anesthetized via a 25-gauge, 1.5-inch needle with 1% lidocaine solution. At this point, a 22-gauge short bevel spinal needle was atraumatically introduced and advanced under fluoroscopic guidance into the region of the L3/4 translaminar space. Depth was confirmed on lateral view. Radiological data, including multiple fluoroscopic views of the lumbar spine, reveal a spinal needle at the L3/4 translaminar space. Lateral views then show placement of the needle in the epidural space. Subsequent views show contrast material flowing superiorly and inferiorly in the epidural space. No vascular or intrathecal uptake is observed. At this point, using loss of resistance technique with saline and air, the epidural space was entered. This was confirmed following negative aspiration with injection of approximately 1.5 cc of Isovue 200, showing excellent epidural flow without vascular or intrathecal uptake. At this point, 1cc of 1% lidocaine solution combined with 3cc or 20mg of dexamethasone and 6mg of betamethasone was injected without incident. The patient tolerated the procedure well without signs or symptoms of complications prior to transfer to the recovery area continued monitoring without incident. The patient was then transferred to the recovery area where they were observed for an appropriate period of time after the injection. The patient reported a VAS score of 6 prior to the procedure and a post- procedure VAS of 0. POST OP INSTRUCTIONS The patient was provided a Pain Log to continue to record their response to the target-specific procedure prior to follow-up visit with their referring physician. Additionally, specific post-injection care instructions and a contact number to our office were provided if concerns arise regarding possible complications associated with the procedure are suspected.
== END 2022-06-06 11:38 | disposition home or self-care (01) ==
LOC: RAD 10:11
PROVIDERS: PCP Student in an Organized Health Care Education/Training Program; Referring Provider Physical Medicine & Rehabilitation; Visit Provider Physical Medicine & Rehabilitation
DX: M48.062 Spinal stenosis, lumbar region with neurogenic claudication (principal); M51.16 Intervertebral disc disorders with radiculopathy, lumbar region
CPT/HCPCS: 62323; 99152; J0702; J1100; J2250; J3490

== ENCOUNTER 2022-10-05 13:35 | Outpatient (CLI) | payer MEDICARE, OTHER, SELFPAY ==
[2021-01-12 12:26] VITALS: BMI 22.4
[2022-10-05] VITALS (8 sets, daily range): BP systolic 105–156; BP diastolic 60–73; PULSE 61–68; RESP 12–20; TEMP 36.2; O2SAT 96–100
--- NOTE | 2022-10-05 13:38 | DI.RAD.S_ITS ---
PROCEDURE: PAIN L INTERLAMINAR/CAUDAL INJ INDICATIONS: SPONDYLOSIS COMPARISON: [facility], XA, PAIN L INTERLAMINAR/CAUDAL INJ, 06/06/2022, 12:07. FINDINGS: Fluoroscopic spot filming was performed to verify placement of spinal needles at the lower lumbar spine level(s), as labeled on the films. Appropriate location(s) of the needle tip(s) was confirmed by injection of iodinated contrast. IMPRESSION: Fluoroscopic support for lumbar translaminar epidural steroid injection. Please see separate procedure note for further details. Dictated by: Octavio Grider M.D. on 10/05/2022 at 15:06 Approved by: Octavio Grider M.D. on 10/05/2022 at 15:08
[2022-10-05] MEDS: MIDAZOLAM 2 MG/2 ML VIAL IV (14:25)
[2022-10-05] MEDS: BETAMETHASONE 30 MG/5 ML MDV 6 MG INJ (14:28)
[2022-10-05] MEDS: DEXAMETHASONE 10 MG/ML VIAL 20 MG INJ (14:28)
[2022-10-05] MEDS: BUPIVACAINE 0.25% (PF) VIAL 2 ML INJ (14:28)
[2022-10-05] MEDS: IOPAMIDOL 15 ML VIAL 3 ML INJ (14:28)
--- NOTE | 2022-10-05 14:41 | P.PCN_ITS ---
Date/Time/Diagnoses Date of procedure: 10/05/22 Time of procedure: 14:41 Pre-procedure diagnosis: 1. HNP WITH RADICULAR FEATURES, 2. MULTILEVEL CENTRAL STENOSIS, Post-procedure diagnosis: same Procedure Notes Procedure: 1. FLUOROSCOPICALLY GUIDED CONTRAST CONTROLLED INTERLAMINAR EPIDURAL STEROID INJECTION - L3/4 Indications: Tiffany is referred by Dr. Bolton for treatment of Bilateral Foraminal Stenosis L>R LE symptoms. Physician: John Fernandez Total Fluoroscopy time (seconds): 12 Total sedation minutes: 13 Complications: none Procedure in detail & Post-procedure care: FINDINGS Multilevel Central Spinal Stenosis with Nerve Root Compression DESCRIPTION OF PROCEDURE Fluoroscopically guided, contrast-controlled L3/4 translaminar epidural steroid injection. Following review of allergy and review of potential side effects and complications, including, but not necessarily limited to, infection, allergic reaction, local tissue breakdown, temporary as well as permanent nerve injury, paralysis, stroke and possible , the patient indicated that the patient understood and agreed to proceed. An informed consent document was signed by the patient, witnessed by a nurse, and placed in the patient's chart. Additionally, other treatment options including modalities, medications, and physical therapy were reviewed with the patient. After review of previous anaesthesic history and IV conscious sedation the patient was deemed safe to proceed with today?s procedure with IV conscious sedation as ASA class II designation. Safety time-out was performed to confirm p atient ID, procedure to be performed and site of procedure. IV sedation was accomplished with a combination of 2mg of Versed was administered by the RN after DO order, titrated to patient comfort during the course of the procedure while the patient remained responsive to all verbal commands. In the prone position, following sterile prep and drape of the lumbar region, the L3/4 translaminar space was identified fluoroscopically. The skin was anesthetized via a 25-gauge, 1.5-inch needle with 1% lidocaine solution. At this point, a 22-gauge short bevel spinal needle was atraumatically introduced and advanced under fluoroscopic guidance into the region of the L3/4 translaminar space. Depth was confirmed on lateral view. Radiological data, including multiple fluoroscopic views of the lumbar spine, reveal a spinal needle at the L3/4 translaminar space. Lateral views then show placement of the needle in the epidural space. Subsequent views show contrast material flowing superiorly and inferiorly in the epidural space. No vascular or intrathecal uptake is observed. At this point, using loss of resistance technique with saline and air, the epidural space was entered. This was confirmed following negative aspiration with injection of approximately 1.5 cc of Isovue 200, showing excellent epidural flow without vascular or intrathecal uptake. At this point, 1cc of 1% lidocaine solution combined with 3cc or 20mg of dexamethasone and 6mg of betamethasone was injected without incident. The patient tolerated the procedure well without signs or symptoms of complications prior to transfer to the recovery area continued monitoring without incident. The patient was then transferred to the recovery area where they were observed for an appropriate period of time after the injection. The patient reported a VAS score of 6 prior to the procedure and a post- procedure VAS of 0. POST OP INSTRUCTIONS The patient was provided a Pain Log to continue to record their response to the target-specific procedure prior to follow-up visit with their referring physician. Additionally, specific post-injection care instructions and a contact number to our office were provided if concerns arise regarding possible complications associated with the procedure are suspected.
== END 2022-10-05 15:01 | disposition home or self-care (01) ==
PROVIDERS: PCP Student in an Organized Health Care Education/Training Program; Referring Provider Physical Medicine & Rehabilitation; Visit Provider Physical Medicine & Rehabilitation
DX: M51.16 Intervertebral disc disorders with radiculopathy, lumbar region (principal); M48.061 Spinal stenosis, lumbar region without neurogenic claudication
CPT/HCPCS: 62323; 99152; J0702; J1100; J2250; J3490

== ENCOUNTER → 2022-10-06 11:18 | Outpatient (CLI) | payer MEDICARE, OTHER, SELFPAY ==
[2021-01-12 12:26] VITALS: BMI 22.4
--- NOTE | 2022-10-06 | DI.MG.S_ITS ---
BILATERAL DIGITAL SCREENING MAMMOGRAM 3D/2D WITH CAD WITH AUGMENTATION: 10/06/2022 CLINICAL: Routine screening. Comparison is made to exams dated: 09/23/2021 mammogram, 08/30/2020 mammogram, and 08/06/2019 mammogram - [facility]. Both breasts are extremely dense, which lowers the sensitivity of mammography (category d />75% glandular tissue). Current study was also evaluated with a Computer Aided Detection (CAD) system. Bilateral breast implants are stable. There are benign vascular calcifications in both breasts. No significant masses, calcifications, or other findings are seen in either breast. There has been no significant interval change. IMPRESSION: BENIGN There is no mammographic evidence of malignancy. A 1 year screening mammogram is recommended. Based on the Tyrer Cuzick model (a risk assessment model) the patient's lifetime risk is 9.4% and her 10 year risk is 6.0%. According to the ACR, ACS, and NCCN guidelines, an annual breast MRI exam along with mammogram is recommended if the patient's lifetime risk is 20% or greater. This exam was interpreted at Station ID: [id number]. NOTE: For mammograms, a report in lay terms will be sent to the patient. Approximately 15% of breast malignancies will not be visualized mammographically. In the management of a palpable breast mass, a negative mammogram must not discourage biopsy of a clinically suspicious lesion. Electronically Signed By: Rubi cabello/cindy:10/06/2022 15:18:14 letter sent: Normal Exam ACR BI-RADS Category 2: Benign Finding(s) 3342F
== END ==
PROVIDERS: PCP Student in an Organized Health Care Education/Training Program; Referring Provider Student in an Organized Health Care Education/Training Program; Visit Provider Student in an Organized Health Care Education/Training Program
DX: Z12.31 Encounter for screening mammogram for malignant neoplasm of breast (principal)
CPT/HCPCS: 77063; 77067

== ENCOUNTER → 2023-06-08 14:35 | Outpatient (CLI) | payer MEDICARE, OTHER, SELFPAY ==
[2023-02-28 10:00] VITALS: BMI 22.4
--- NOTE | 2023-06-08 14:37 | DI.RAD.S_ITS ---
Bone Density Report Name: NEERAJ DIAL Age: 72 Sex: Female Ethnicity: White Date of : 1950 Indication: monitoring treatment; Referring Provider: TUCKER SOLIS Study: Bone densitometry was performed. Exam Date: June 08, 2023 Accession number: [id number] Bone Density: Region BMD T-score Z-score Classification AP Spine(L1, L3, L4) 1.622 5.2 7.4 Normal Femoral Neck (Left) 0.677 -1.5 0.3 Osteopenia Total Hip (Left) 0.836 -0.9 0.7 Normal Femoral Neck (Right) 0.676 -1.6 0.3 Osteopenia Total Hip (Right) 0.840 -0.8 0.8 Normal Total Hip Mean 0.838 -0.9 0.8 Normal World Health Organization criteria for BMD impression classify patients as: Normal (T-score at or above -1.0), Osteopenia (T-score between -1.0 and -2.5), or Osteoporosis (T-score at or below -2.5). 10-year Fracture Risk: FRAX not reported because: Treated for osteoporosis Previous Exams: -- Region Exam Age BMD T-score BMD Change BMD Change Date g/cm2 vs Baseline vs Previous -- AP Spine (L1,L3-L4) 06/08/2023 72 1.622 5.2 0.115 (7.7%)# 0.105 (6.9%)# 08/06/2019 68 1.517 4.2 0.011 (0.7%) 0.011 (0.7%) 07/05/2012 61 1.506 4.1 Total Hip(Left) 06/08/2023 72 0.836 -0.9 -0.036 (-4.1%)# -0.031 (-3.5%)# 05/11/2021 70 0.867 -0.6 -0.005 (-0.6%) 0.024 (2.8%) 08/06/2019 68 0.843 -0.8 -0.029 (-3.3%)* -0.029 (-3.3%)* 07/05/2012 61 0.872 -0.6 Total Hip(Right) 06/08/2023 72 0.840 -0.8 -0.086 (-9.3%)# -0.031 (-3.5%)# 05/11/2021 70 0.871 -0.6 -0.055 (-6.0%)* -0.016 (-1.8%) 08/06/2019 68 0.887 -0.4 -0.039 (-4.2%)* -0.039 (-4.2%)* 07/05/2012 61 0.926 -0.1 -- *Denotes significance at 95% confidence level, LSC for AP Spine = 0.022 g/cm2, LSC for Total Hip = 0.027 g/cm2 Rate of change results reflect vertebral levels common to all scans # Denotes dissimilar scan types or analysis methods Impression: The patient has low bone mass, based on the Right Femoral Neck T-score. No significant bone loss was observed. Discussion: PATIENT UNDER TREATMENT WITH NO SIGNIFICANT BMD LOSS SINCE LAST EXAM. In an untreated patient, BMD typically declines with age. A lack of decline or gain is usually a sign that treatment is efficacious and fracture risk is reduced. It is important to ask patients whether they are taking their medications and to encourage continued and appropriate compliance with their osteoporosis therapies to reduce fracture risk. It is also important to review their risk factors and encourage appropriate calcium and vitamin D intakes, exercise, fall prevention and other lifestyle measures. Follow-Up: Consider a repeat BMD and Vertebral Fracture Assessment (VFA) exam in 2 years or sooner if medically necessary, to reassess this patient's status. Reported by: MEKHI PONCE M.D. on 06/08/2023 3:07:00 PM.
== END ==
LOC: RAD 14:36
PROVIDERS: PCP Family Medicine; Referring Provider Family Medicine; Visit Provider Family Medicine
DX: Z78.0 Asymptomatic menopausal state (principal); M81.0 Age-related osteoporosis without current pathological fracture; Z79.83 Long term (current) use of bisphosphonates
CPT/HCPCS: 77080

== ENCOUNTER → 2023-10-11 12:29 | Outpatient (CLI) | payer MEDICARE, OTHER, SELFPAY ==
[2023-02-28 10:00] VITALS: BMI 22.4
--- NOTE | 2023-10-11 12:31 | DI.MG.S_ITS ---
BILATERAL DIGITAL SCREENING MAMMOGRAM 3D/2D WITH CAD WITH AUGMENTATION: 10/11/2023 CLINICAL: Routine screening. Comparison is made to exams dated: 10/06/2022 mammogram, 09/23/2021 mammogram, and 08/30/2020 mammogram - [facility]. Both breasts are extremely dense, which lowers the sensitivity of mammography (category d />75% glandular tissue). Current study was also evaluated with a Computer Aided Detection (CAD) system. Bilateral breast implants are stable. There are benign vascular calcifications in both breasts. No significant masses, calcifications, or other findings are seen in either breast. There has been no significant interval change. IMPRESSION: BENIGN There is no mammographic evidence of malignancy. A 1 year screening mammogram is recommended. Based on the Tyrer Cuzick model (a risk assessment model) the patient's lifetime risk is 8.9% and her 10 year risk is 6.2%. According to the ACR, ACS, and NCCN guidelines, an annual breast MRI exam along with mammogram is recommended if the patient's lifetime risk is 20% or greater. This exam was interpreted at Station ID: [id number]. NOTE: For mammograms, a report in lay terms will be sent to the patient. Approximately 15% of breast malignancies will not be visualized mammographically. In the management of a palpable breast mass, a negative mammogram must not discourage biopsy of a clinically suspicious lesion. Electronically Signed By: Rubi cabello/cindy:10/11/2023 19:04:08 letter sent: Normal Exam ACR BI-RADS Category 2: Benign Finding(s) 3342F
[2023-10-11 14:25] LABS: Add Manual Diff / Slide Review NO; Basophils Absolute Auto 0 /uL (0-100); Basophils Percent Auto 0.4 % (0-2); Eosinophils Absolute Auto 200 /uL (0-450); Eosinophils Percent Auto 2.8 % (2-4); Hematocrit 36.8 % (36-46); Hemoglobin 12.4 g/dL (12.0-16.0); Lymphocytes Absolute Auto 2000 /uL (1100-4500); Lymphocytes Percent Auto 24.9 % (25-40); Mean Corpuscular HGB Conc 33.8 % (30-36); Mean Corpuscular Hemoglobin 32.2 PG (26-34); Mean Corpuscular Volume 95.5 fL (80-100); Monocytes Absolute Auto 500 /uL (0-900); Monocytes Percent Auto 6.8 % (3-14); Neutrophils Absolute Auto 5100 /uL (1500-7000); Neutrophils Percent Auto 65.1 % (50-75); Platelet Count 259 X10^3/uL (150-400); Red Blood Cell Count 3.85 X10^6/uL (4.0-5.2); Red Cell Distribution Width 13.2 % (11.6-14.8); White Blood Cell Count 7.8 X10^3/uL (4.5-11.0)
[2023-10-11 20:57] LABS: Alanine Aminotransferase 21 IU/L (<35); Albumin 4.3 g/dL (3.5-5.0); Albumin Globulin Ratio 1.8 (1.0-2.8); Alkaline Phosphatase 57 U/L (38-126); Aspartate Aminotransferase 42 IU/L (14-36); BUN Creatinine Ratio 26.5 (6-22); Bilirubin Total 0.6 mg/dL (0.2-1.3); Blood Urea Nitrogen 31 mg/dL (7-17); Calcium 9.3 mg/dL (8.4-10.2); Carbon Dioxide 26 mmol/L (22-32); Chloride 108 mmol/L (98-107); Cholesterol 177 mg/dL (140-199); Estimated Glomerular Filt Rate 50 mL/min (>60); Globulin 2.4 g/dL (1.7-4.1); Glucose 93 mg/dL (80-110); HDL Cholesterol 74 mg/dL (40-60); HEMOLYSIS < 15 (0-50); LDL Cholesterol Calculated 76 mg/dL (<100); Sodium 138 mmol/L (137-145); Total Protein 6.7 g/dL (6.3-8.2); Triglycerides 136 mg/dL (35-150)
[2023-10-11 21:24] LABS: Vitamin D 25 Hydroxy (D3) 43.3 ng/mL (30.0-100.0)
== END ==
LOC: MAMMO 12:31
PROVIDERS: PCP Family Medicine; Referring Provider Family Medicine; Visit Provider Family Medicine
DX: E78.00 Pure hypercholesterolemia, unspecified; M85.80 Other specified disorders of bone density and structure, unspecified site; Z12.31 Encounter for screening mammogram for malignant neoplasm of breast; R92.343 Mammographic extreme density, bilateral breasts; R09.89 Other specified symptoms and signs involving the circulatory and respiratory systems; Z78.0 Asymptomatic menopausal state
CPT/HCPCS: 36415; 77063; 77067; 80053; 80061; 82306; 85025

== ENCOUNTER → 2023-11-02 10:00 | Outpatient (CLI) | payer MEDICARE, OTHER, SELFPAY ==
[2023-02-28 10:00] VITALS: BMI 22.4
[2023-11-02 11:02] LABS: Albumin 4.1 g/dL (3.5-5.0); BUN Creatinine Ratio 21.3 (6-22); Blood Urea Nitrogen 20 mg/dL (7-17); Carbon Dioxide 28 mmol/L (22-32); Chloride 102 mmol/L (98-107); Estimated Glomerular Filt Rate > 60 mL/min (>60); Glucose 109 mg/dL (80-110); HEMOLYSIS < 15 (0-50); Phosphorous 3.9 mg/dL (2.8-4.1); Sodium 134 mmol/L (137-145)
[2023-11-02 11:03] LABS: Potassium 5.7 mmol/L (3.4-5.1)
== END ==
PROVIDERS: PCP Family Medicine; Referring Provider Family Medicine; Visit Provider Family Medicine
DX: N28.9 Disorder of kidney and ureter, unspecified (principal); R89.9 Unspecified abnormal finding in specimens from other organs, systems and tissues
CPT/HCPCS: 36415; 80069

== ENCOUNTER → 2024-03-03 12:35 | Outpatient (CLI) | payer MEDICARE, OTHER, SELFPAY ==
[2023-02-28 10:00] VITALS: BMI 22.4
--- NOTE | 2024-03-03 12:36 | DI.RAD.S_ITS ---
PROCEDURE: XR FOOT LT MIN 3V INDICATIONS: LEFT FOOT PAIN TECHNIQUE: 3 views of the foot were acquired. COMPARISON: None. FINDINGS: Bones: No fractures or dislocations. No suspicious bony lesions. 1st MTP joint space narrowing with osteophytosis. Calcification with well corticated margins at the tip of the 5th metatarsal. Soft tissues: No tibiotalar joint effusion. Achilles tendon appears normal. 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 Well corticated ossification of the 5th metatarsal base favors a remote avulsion injury. Dictated by: Omkar Trinh M.D. on 03/03/2024 at 13:18 Approved by: Omkar Trinh M.D. on 03/03/2024 at 13:19
--- NOTE | 2024-03-03 12:36 | DI.RAD.S_ITS ---
PROCEDURE: XR FOOT RT MIN 3V INDICATIONS: RIGHT FOOT PAIN TECHNIQUE: 3 views of the foot were acquired. COMPARISON: None. FINDINGS: Bones: No fractures or dislocations. No suspicious bony lesions. 1st MTP joint space narrowing with osteophytic lipping. Remote 5th metatarsal shaft fracture. Soft tissues: No tibiotalar joint effusion. Achilles tendon appears normal. IMPRESSION: Mild 1st MTP osteoarthritis. Remote 5th metatarsal shaft fracture. Dictated by: Omkar Trinh M.D. on 03/03/2024 at 13:19 Approved by: Omkar Trinh M.D. on 03/03/2024 at 13:20
--- NOTE | 2024-03-03 12:36 | DI.RAD.S_ITS ---
PROCEDURE: XR LUMBAR SPINE MIN 4V INDICATIONS: BILATERAL FOOT PAIN TECHNIQUE: 5 views of the lumbar spine were acquired, including bilateral oblique views. COMPARISON: [facility], CR, XR LUMBAR SPINE MIN 4V, 08/23/2021, 12:49. FINDINGS: Bones: 5 nonrib-bearing vertebrae are present. Grade 1 anterolisthesis of L3 on L4. Severe disc height loss at all levels and diffuse facet arthrosis. No vertebral body compression fractures. No suspicious bony lesions. Soft tissues: Overlying bowel gas pattern is normal. No suspicious soft tissue calcifications. Oblique images: No pars defects. IMPRESSION: Severe, multilevel degenerative disc disease and diffuse facet arthrosis. Findings have slightly progressed since 2021. Dictated by: Omkar Trinh M.D. on 03/03/2024 at 13:17 Approved by: Omkar Trinh M.D. on 03/03/2024 at 13:17
== END ==
PROVIDERS: PCP Family Medicine; Referring Provider Physical Medicine & Rehabilitation; Visit Provider Physical Medicine & Rehabilitation
DX: M47.816 Spondylosis without myelopathy or radiculopathy, lumbar region (principal); M48.062 Spinal stenosis, lumbar region with neurogenic claudication; M51.369 Other intervertebral disc degeneration, lumbar region without mention of lumbar back pain or lower extremity pain; M19.072 Primary osteoarthritis, left ankle and foot; M19.071 Primary osteoarthritis, right ankle and foot; M79.671 Pain in right foot; M79.672 Pain in left foot
CPT/HCPCS: 72110; 73630

== ENCOUNTER → 2024-06-12 12:39 | Outpatient (CLI) | payer MEDICARE, OTHER, SELFPAY ==
[2023-02-28 10:00] VITALS: BMI 22.4
[2024-06-12 13:50] LABS: BUN Creatinine Ratio 19.6 (6-22); Blood Urea Nitrogen 21 mg/dL (7-17); Calcium 9.1 mg/dL (8.4-10.2); Carbon Dioxide 28 mmol/L (22-32); Chloride 104 mmol/L (98-107); Estimated Glomerular Filt Rate 55 mL/min (>60); Glucose 81 mg/dL (80-110); HEMOLYSIS < 15 (0-50); Potassium 4.1 mmol/L (3.4-5.1); Sodium 136 mmol/L (137-145)
== END ==
PROVIDERS: PCP Family Medicine; Referring Provider Family Medicine; Visit Provider Family Medicine
DX: E87.5 Hyperkalemia (principal); E87.1 Hypo-osmolality and hyponatremia
CPT/HCPCS: 80048

== ENCOUNTER → 2024-07-23 14:18 | Outpatient (CLI) | payer MEDICARE, OTHER, SELFPAY ==
[2023-02-28 10:00] VITALS: BMI 22.4
[2024-07-23 15:43] LABS: COVID-19 CEPHEID 4-PLEX PCR Negative (Negative); Influenza A - CEPHEID Flu A POSITIVE (NEGATIVE); Influenza B - CEPHEID Flu B NEGATIVE (NEGATIVE); Respiratory Syncytial Virus Negative (Negative)
== END ==
PROVIDERS: PCP Family Medicine; Visit Provider Nurse Practitioner Family
DX: J02.9 Acute pharyngitis, unspecified (principal); R05.1 Acute cough
CPT/HCPCS: 0241U; 87070

== ENCOUNTER 2024-07-23 22:15 | Emergency (ER) | payer MEDICARE, OTHER, SELFPAY ==
[2023-02-28 10:00] VITALS: BMI 22.4
[2024-07-23 22:22] VITALS: BP 160/70; PULSE 85; RESP 14; TEMP 37.4; O2SAT 97; BMI 23.2
[2024-07-23 22:53] VITALS: BP 168/84; BP 177/82; BP 179/82; PULSE 85; PULSE 86; PULSE 88
[2024-07-23 22:55] LABS: Add Manual Diff / Slide Review NO; Basophils Absolute Auto 0 /uL (0-100); Basophils Percent Auto 0.4 % (0-2); Eosinophils Absolute Auto 100 /uL (0-450); Eosinophils Percent Auto 1.9 % (2-4); Hematocrit 33.9 % (36-46); Hemoglobin 11.6 g/dL (12.0-16.0); Lymphocytes Absolute Auto 500 /uL (1100-4500); Lymphocytes Percent Auto 9.7 % (25-40); Mean Corpuscular HGB Conc 34.3 % (30-36); Mean Corpuscular Hemoglobin 32.3 PG (26-34); Mean Corpuscular Volume 94.1 fL (80-100); Monocytes Absolute Auto 700 /uL (0-900); Monocytes Percent Auto 12.1 % (3-14); Neutrophils Absolute Auto 4300 /uL (1500-7000); Neutrophils Percent Auto 75.9 % (50-75); Platelet Count 209 X10^3/uL (150-400); White Blood Cell Count 5.7 X10^3/uL (4.5-11.0)
[2024-07-23 23:06] LABS: Alanine Aminotransferase 22 IU/L (<35); Albumin 4.3 g/dL (3.5-5.0); Albumin Globulin Ratio 1.7 (1.0-2.8); Alkaline Phosphatase 53 U/L (38-126); Aspartate Aminotransferase 32 IU/L (14-36); BUN Creatinine Ratio 15.8 (6-22); Bilirubin Total 0.4 mg/dL (0.2-1.3); Blood Urea Nitrogen 16 mg/dL (7-17); Calcium 8.6 mg/dL (8.4-10.2); Carbon Dioxide 27 mmol/L (22-32); Chloride 100 mmol/L (98-107); Estimated Glomerular Filt Rate 59 mL/min (>60); Ethanol (ETOH) < 10 mg/dL; Globulin 2.6 g/dL (1.7-4.1); Glucose 97 mg/dL (80-110); HEMOLYSIS < 15 (0-50); Potassium 4.3 mmol/L (3.4-5.1); Sodium 132 mmol/L (137-145); Total Protein 6.9 g/dL (6.3-8.2)
[2024-07-24] VITALS (7 sets, daily range): BP systolic 160–204; BP diastolic 75–96; PULSE 77–92; RESP 14–20; TEMP 37.1–37.4; O2SAT 92–99
--- NOTE | 2024-07-24 00:27 | ED_ITS ---
HPI - General Adult <Valarie Sevilla MD - Last Filed: 07/25/24 04:39> General Chief complaint: Weakness Stated complaint: dizzy spell, now can't walk w/o holding on to some Time Seen by Provider: 07/23/24 22:33 Source: patient Mode of arrival: Wheelchair History of Present Illness HPI narrative: 73-year-old woman recently diagnosed with influenza started on Tamiflu today, history of hypertension, hyperlipidemia, depression and osteoporosis was seen in urgent care earlier today with concerns for a sore throat. she is testing positive for influenza A. She was given a prescription for Tamiflu. After she got home from her urgent care visit somewhere around 6:00 p.m. she noticed that she had some lights flashing in her visual jaeger similar to a migraine, she has a mild headache and then notes that she is having increasing difficulty walking. She has a wider based unsteady gait and she states yesterday she was walking in the [place] with her dogs and having no difficulties whatsoever. Remainder of neurologic exam is unremarkable and fast exam is negative. She notes that she did take a Tamiflu tonight is not sure if she took it before or after the onset of the unsteady gait. She reports fevers, slight cough, nausea, dizziness no abdominal pain no palpitations or chest pain. Related Data Previous Rx's Medication Instructions Recorded alendronate 70 mg tablet 70 mg PO QWEEK #12 tabs 10/17/23 celecoxib 200 mg capsule (Celebrex) 200 mg PO Q OTHER DAY PRN pain #60 11/28/23 caps venlafaxine 75 mg capsule,extended 75 mg PO Q DAY #150 caps 03/13/24 release 24 hr (Effexor XR) tramadol 50 mg tablet 50 mg PO BEDTIME #30 tabs 04/14/24 lisinopril 20 mg tablet 20 mg PO BID #250 tabs 04/28/24 atorvastatin 40 mg tablet 40 mg PO BEDTIME #90 tabs 05/14/24 daridorexant 25 mg tablet 25 mg PO BEDTIME #30 tabs 06/12/24 lorazepam 0.5 mg tablet 0.5 mg PO DAILY PRN anxiety #4 tabs 06/12/24 Estradiol 0.0125% 1 g vaginal 2XW #30 grams 06/19/24 carvedilol 25 mg tablet 25 mg PO BID #250 tabs 07/15/24 estradiol 2 mg (7.5 mcg/24 hour) 1 vag ring vaginal [id number] #1 ea 07/17/24 vaginal ring (Estring) oseltamivir 75 mg capsule (Tamiflu) 75 mg PO BID 5 days #10 caps 07/23/24 Allergies Allergy/AdvReac Type Severity Reaction Status Date / Time No Known Drug Allergies Allergy Verified 07/23/24 14:14 Review of Systems <Valarie Sevilla MD - Last Filed: 07/25/24 04:39> Review of Systems Narrative: Pertinent positive and negative findings as per HPI Patient History <Valarie Sevilla MD - Last Filed: 07/25/24 04:39> Medical History (Updated 07/24/24 @ 01:49 by Valarie Sevilla MD) Right wrist pain (10/26/16) Pain in both hands (10/26/16) Metatarsalgia of both feet Rotator cuff tear arthropathy of both shoulders Lumbar stenosis with neurogenic claudication Left knee DJD DJD of shoulder Cervical stenosis of spinal canal Ischial bursitis of left side Uncomplicated opioid dependence Osteopenia (2012) Insomnia (Unknown) Hypertension (Unknown) Hyperlipemia (~01/2011) Acne (1965) Osteoarthritis (1999) Depression (1999) Restless leg syndrome (2003) Migraines (2001) ADD (attention deficit disorder) (2007) Disorder of lumbar spine (1989) Chronic back pain (1989) Spinal stenosis (1999) Carpal tunnel syndrome on left (2009) Chickenpox (1960) Surgical History Status post right knee replacement S/P cervical spinal fusion History of arthroplasty of right knee H/O breast biopsy (01/2009) History of breast augmentation History of third molar tooth extraction Status post surgery (12/21/09) Family History Father Hyperlipidemia Essential hypertension Heart disease Social History household members: spouse Smoking Status: Former smoker alcohol intake: former Smoking Status: Former smoker Exam <Valarie Sevilla MD - Last Filed: 07/25/24 04:39> Initial Vital Signs Initial Vital Signs: Vital Signs Temperature 99.4 F 07/23/24 22:22 Pulse Rate 85 07/23/24 22:22 Respiratory Rate 14 07/23/24 22:22 Blood Pressure 160/70 H 07/23/24 22:22 Pulse Oximetry 97 07/23/24 22:22 Oxygen Delivery Method Room Air 07/23/24 22:22 General: Healthy appearing, in no acute distress. Able to give a complete and coherent history. Well-nourished well-developed HEENT: Moist mucous membranes, Injected sclera bilaterally, extraocular eye movement intact Respiratory: Lungs are clear to auscultation, no wheezing no rales no rhonchi. Full and symmetrical air movement Cardiac: Regular rate and rhythm no murmurs no bruits Abdomen: Soft, nontender, good bowel tones, no flank pain Skin: Warm and dry, no rashes Neurologic: she is moving all extremities, has a somewhat wide-based unsteady gait with slight shift to the left. Remainder of neurologic exam is entirely benign and NIH score is 0 Extremities: No trauma, well perfused Psych: Cooperative, appropriate insight and affect <Josh Herron MD - Last Filed: 07/24/24 16:26> Initial Vital Signs Initial Vital Signs: Vital Signs Temperature 99.4 F 07/23/24 22:22 Pulse Rate 85 07/23/24 22:22 Respiratory Rate 14 07/23/24 22:22 Blood Pressure 160/70 H 07/23/24 22:22 Pulse Oximetry 97 07/23/24 22:22 Oxygen Delivery Method Room Air 07/23/24 22:22 Course <Valarie Sevilla MD - Last Filed: 07/25/24 04:39> Orders Ordered: Discontinued Medications Acetaminophen (Acetaminophen 325 Mg Tablet) 975 mg PO NOW ONE Stop: 07/24/24 01:13 Last Admin: 07/24/24 01:17 Dose: 975 mg Documented By: NANCY Diazepam (Diazepam 10 Mg/2 Ml Syringe) 5 mg IV NOW ONE Stop: 07/24/24 01:50 Last Admin: 07/24/24 01:59 Dose: 5 mg Documented By: Diazepam (Diazepam 10 Mg/2 Ml Syringe) 5 mg IV NOW ONE Stop: 07/24/24 07:39 Last Admin: 07/24/24 09:58 Dose: 5 mg Documented By: LV Ondansetron HCl (Ondansetron 4 Mg/2 Ml Inj) 4 mg IV NOW ONE Stop: 07/24/24 07:40 Last Admin: 07/24/24 07:50 Dose: 4 mg Documented By: NAKITA Vital Signs Vital signs: Vital Signs - 8 hr 07/24/24 10:12 Temperature 98.9 F Pulse Rate 83 Respiratory Rate 16 Blood Pressure 160/75 H Pulse Oximetry 94 Oxygen Delivery Method Room Air <Josh Herron MD - Last Filed: 07/24/24 16:26> Orders Ordered: Discontinued Medications Acetaminophen (Acetaminophen 325 Mg Tablet) 975 mg PO NOW ONE Stop: 07/24/24 01:13 Last Admin: 07/24/24 01:17 Dose: 975 mg Documented By: NANCY Diazepam (Diazepam 10 Mg/2 Ml Syringe) 5 mg IV NOW ONE Stop: 07/24/24 01:50 Last Admin: 07/24/24 01:59 Dose: 5 mg Documented By: Diazepam (Diazepam 10 Mg/2 Ml Syringe) 5 mg IV NOW ONE Stop: 07/24/24 07:39 Last Admin: 07/24/24 09:58 Dose: 5 mg Documented By: LV Ondansetron HCl (Ondansetron 4 Mg/2 Ml Inj) 4 mg IV NOW ONE Stop: 07/24/24 07:40 Last Admin: 07/24/24 07:50 Dose: 4 mg Documented By: NAKITA Vital Signs Vital signs: Vital Signs - 8 hr 07/24/24 10:12 Temperature 98.9 F Pulse Rate 83 Respiratory Rate 16 Blood Pressure 160/75 H Pulse Oximetry 94 Oxygen Delivery Method Room Air Medical Decision Making <Valarie Sevilla MD - Last Filed: 07/25/24 04:39> Lab Data 07/23/24 22:49 07/23/24 22:49 Labs: Lab Results 07/23/24 Range/Units 22:49 WBC 5.7 (4.5-11.0) X10^3/uL RBC 3.60 L (4.0-5.2) X10^6/uL Hgb 11.6 L (12.0-16.0) g/dL Hct 33.9 L (36-46) % MCV 94.1 (80-100) fL MCH 32.3 (26-34) PG MCHC 34.3 (30-36) % RDW 13.0 (11.6-14.8) % Plt Count 209 (150-400) X10^3/uL Neut % (Auto) 75.9 H (50-75) % Lymph % (Auto) 9.7 L (25-40) % [place] % (Auto) 12.1 (3-14) % Eos % (Auto) 1.9 L (2-4) % Baso % (Auto) 0.4 (0-2) % Neut # (Auto) 4300 (1495-4425) /uL Lymph # (Auto) 500 L (6936-9187) /uL [place] # (Auto) 700 (0-900) /uL Eos # (Auto) 100 (0-450) /uL Baso # (Auto) 0 (0-100) /uL Sodium 132 L (137-145) mmol/L Potassium 4.3 (3.4-5.1) mmol/L Chloride 100 (98-107) mmol/L Carbon Dioxide 27 (22-32) mmol/L BUN 16 (7-17) mg/dL Creatinine 1.01 (0.52-1.04) mg/dL Estimated GFR 59 L (>60) mL/min BUN/Creatinine Ratio 15.8 (6-22) Glucose 97 (80-110) mg/dL Calcium 8.6 (8.4-10.2) mg/dL Total Bilirubin 0.4 (0.2-1.3) mg/dL AST 32 (14-36) IU/L ALT 22 (<35) IU/L Alkaline Phosphatase 53 (38-126) U/L Total Protein 6.9 (6.3-8.2) g/dL Albumin 4.3 (3.5-5.0) g/dL Globulin 2.6 (1.7-4.1) g/dL Albumin/Globulin Ratio 1.7 (1.0-2.8) Ethyl Alcohol < 10 ( - 10) mg/dL MDM Narrative Medical decision making narrative: CC: unsteady gait, diagnosed with influenza earlier today, started Tamiflu Complicating co-morbidities: patient is unclear of the 1st dose of Tamiflu was before or after the gait disturbance was noticed Data collected from: patient, Medical records reviewed: urgent care note from earlier today is reviewed Differential considered: migraine, complex migraine, influenza, stroke Exam documented above, pertinent findings include: injected sclera, she does have a wide-based gait and does tend to drift toward the left without any other localizing neurologic symptoms. Lungs are clear. Lab Test results independently reviewed as above. Pertinent findings: Influenza a positive earlier today CBC does not show significant leukocytosis. Chronic stable anemia with hemoglobin 11.6. Chemistries are unremarkable. Normal renal function, no liver abnormalities Imaging studies independently reviewed: CT of the brain does not show acute finding CT angiogram of the neck does show bilateral carotid stenosis 70-90%. No large vessel occlusions appreciated Consultations: Treatments: Re-evaluations:145am patient informs me that she just now took her own dose of 25 mg of carvedilol Discussion: 73-year-old woman with influenza, significant increase in overall dizziness with unsteady gait. Unclear this is due to her acute viral illness, she isn't sure if the symptoms started before after she took the 1st dose of Tamiflu and certainly could be a posterior circulation stroke. Have recommended MRI which will be arranged within the next couple of hours. We will see if we can get her to sleep for the interval time. Explained reasons for additional imaging. <Josh Herron MD - Last Filed: 07/24/24 16:26> Lab Data Labs: Lab Results 07/23/24 Range/Units 22:49 WBC 5.7 (4.5-11.0) X10^3/uL RBC 3.60 L (4.0-5.2) X10^6/uL Hgb 11.6 L (12.0-16.0) g/dL Hct 33.9 L (36-46) % MCV 94.1 (80-100) fL MCH 32.3 (26-34) PG MCHC 34.3 (30-36) % RDW 13.0 (11.6-14.8) % Plt Count 209 (150-400) X10^3/uL Neut % (Auto) 75.9 H (50-75) % Lymph % (Auto) 9.7 L (25-40) % [place] % (Auto) 12.1 (3-14) % Eos % (Auto) 1.9 L (2-4) % Baso % (Auto) 0.4 (0-2) % Neut # (Auto) 4300 (8932-1879) /uL Lymph # (Auto) 500 L (0736-5587) /uL [place] # (Auto) 700 (0-900) /uL Eos # (Auto) 100 (0-450) /uL Baso # (Auto) 0 (0-100) /uL Sodium 132 L (137-145) mmol/L Potassium 4.3 (3.4-5.1) mmol/L Chloride 100 (98-107) mmol/L Carbon Dioxide 27 (22-32) mmol/L BUN 16 (7-17) mg/dL Creatinine 1.01 (0.52-1.04) mg/dL Estimated GFR 59 L (>60) mL/min BUN/Creatinine Ratio 15.8 (6-22) Glucose 97 (80-110) mg/dL Calcium 8.6 (8.4-10.2) mg/dL Total Bilirubin 0.4 (0.2-1.3) mg/dL AST 32 (14-36) IU/L ALT 22 (<35) IU/L Alkaline Phosphatase 53 (38-126) U/L Total Protein 6.9 (6.3-8.2) g/dL Albumin 4.3 (3.5-5.0) g/dL Globulin 2.6 (1.7-4.1) g/dL Albumin/Globulin Ratio 1.7 (1.0-2.8) Ethyl Alcohol < 10 ( - 10) mg/dL Imaging Data MRI brain: Radiologist's Impression: [place] [address] Magnetic Resonance Report Signed Patient: Tiffany Orta MR#: [id number] : 1950 Acct:[id number] Age/Sex: 73 / F Date of Service: 07/24/24 Loc: ED Accession Number: [id number] Procedure: MR head/brain wo con Ordering Provider: Valarie Sevilla MD PROCEDURE: MR HEAD/BRAIN WO CON INDICATIONS: acute ataxia TECHNIQUE: Non-contrast axial T1 spin echo, axial T2 fast spin echo, sagittal and axial FLAIR, coronal T2 fast spin echo, axial gradient echo, axial diffusion and ADC through the brain. COMPARISON: [facility], CT, CT ANGIO HEAD AND NECK, 07/24/2024, 0:55. [facility], CT, CT HEAD/BRAIN WO CON, 07/24/2024, 0:55. FINDINGS: Image quality: Excellent. CSF spaces: Ventricles appear symmetric in size and shape. Basal cisterns are patent. No extra-axial fluid collections. Brain: No intracranial bleeds or mass effects. There is cerebral volume loss for age. There are periventricular and deep white matter chronic small vessel ischemic changes. Brainstem appears normal. Diffusion-weighted images show no acute infarct. No chronic ischemic insults. Normal intravascular flow voids are present. Skull and face: Calvarial bone marrow is normal in signal. Orbits are normal. Sinuses: Sinuses and mastoids are clear. IMPRESSION: No acute intracranial disease process. No acute or chronic infarcts. No intracranial hemorrhage or abnormal intracranial mass. Dictated by: Sharonda Ma MD, PhD on 07/24/2024 at 10:34 Approved by: Sharonda Ma MD, PhD on 07/24/2024 at 10:36 CT scan - head: Radiologist's Impression: [place] [address] CT Scan Report Signed Patient: Tiffany Orta MR#: [id number] : 1950 Acct:[id number] Age/Sex: 73 / F Date of Service: 07/24/24 Loc: ED Accession Number: [id number] Procedure: CT head/brain wo con Ordering Provider: Valarie Sevilla MD PROCEDURE: CT HEAD/BRAIN WO CON INDICATIONS: acute dizziness and ataxic gait TECHNIQUE: Noncontrast 4.5 mm thick angled axial sections acquired from the foramen magnum to the vertex, with coronal and sagittal reformats. For radiation dose reduction, the following was used: automated exposure control, adjustment of mA and/or kV according to patient size. COMPARISON: None. FINDINGS: Image quality: Diagnostic. CSF spaces: Basal cisterns are patent. No extra-axial fluid collections. The ventricles are symmetric in size and shape. Brain: No intracranial bleeds or masses. There is cerebral volume loss for age, with resultant ventricular and sulcal prominence. There are periventricular and deep white matter chronic small vessel ischemic changes. There is intracranial internal carotid artery atherosclerosis. Skull and face: Calvarium and visualized facial bones appear intact, without suspicious lesions. Sinuses: Visualized sinuses and mastoids are clear. IMPRESSION: No acute intracranial pathology. Dictated by: Venkat Tenorio M.D. on 07/24/2024 at 1:24 Approved by: Venkat Tenorio M.D. on 07/24/2024 at 1:25 CTA - brain/neck: Radiologist's Impression: [address] [address] [address] Scan Report Signed Patient: Tiffany Orta MR#: [id number] : 1950 Acct:[id number] Age/Sex: 73 / F Date of Service: 07/24/24 Loc: ED Accession Number: [id number] Procedure: CT angio head and neck Ordering Provider: Valarie Sevilla MD PROCEDURE: CT ANGIO HEAD AND NECK INDICATIONS: acute dizziness and ataxic gait TECHNIQUE: After the administration of intravenous contrast, 1 mm thick sections acquired from the aortic arch through the [place]. 3-dimensional cmtdqht-tdznxatuv-wjkjtdahsm (MIP) and/or volume rendering reformats were acquired of the central intracranial vasculature and neck separately. For radiation dose reduction, the following was used: automated exposure control, adjustment of mA and/or kV according to patient size. COMPARISON: None. FINDINGS: Image quality: Diagnostic. BRAIN: Please refer to same day CT of the head. HEAD CT ANGIOGRAPHY: Anterior circulation: Intracranial internal carotid arteries demonstrate atherosclerotic calcifications with areas of mild stenosis. The flow within the paired anterior cerebral arteries is normal and symmetric. The flow within the middle cerebral arteries is normal and symmetric. The anterior communicating artery is seen. No aneurysms are seen. Posterior circulation: Visualized portions of the vertebral arteries demonstrate normal caliber, and join to form a normal appearing basilar artery. Flow within the posterior cerebral arteries is normal and symmetric. No aneurysms are seen. NECK CT ANGIOGRAPHY: Carotid system: The great vessels demonstrate a conventional anatomy as they arise from the aortic arch. The origins of the common carotid arteries appear patent. The common carotid arteries demonstrate normal caliber and courses. The bifurcation regions demonstrate coarse calcifications with high-grade stenosis of the bilateral proximal ICAs, greater than 70%. Posterior circulation: Right vertebral artery origin appears patent. At least moderate stenosis of the left vertebral artery origin. The more superior extracranial portions of both vertebral arteries also demonstrate normal courses and calibers. They join to form a normal appearing basilar artery. Soft tissues: Visualized neck soft tissues demonstrate no suspicious abnormalities. Biapical pleuroparenchymal scarring. Bones: No suspicious bony lesions. Visualized cervical spine appears normally aligned. Multilevel degenerative changes status post posterior spinal fixation and laminectomy. IMPRESSION: No significant intracranial arterial abnormality is seen. Coarse calcifications of the bilateral carotid bifurcations with high-grade stenosis of the bilateral proximal ICAs, greater than 70% and likely closer to 90%. At least moderate stenosis of the left vertebral artery origin. Any quantitative measurements of stenosis were performed using NASCET criteria. Dictated by: Venkat Tenorio M.D. on 07/24/2024 at 1:25 Approved by: Venkat Tenorio M.D. on 07/24/2024 at 1:31 MDM Narrative Medical decision making narrative: CC: unsteady gait, diagnosed with influenza earlier today, started Tamiflu Complicating co-morbidities: patient is unclear of the 1st dose of Tamiflu was before or after the gait disturbance was noticed Data collected from: patient, Medical records reviewed: urgent care note from earlier today is reviewed Differential considered: migraine, complex migraine, influenza, stroke Exam documented above, pertinent findings include: injected sclera, she does have a wide-based gait and does tend to drift toward the left without any other localizing neurologic symptoms. Lungs are clear. Lab Test results independently reviewed as above. Pertinent findings: Influenza a positive earlier today CBC does not show significant leukocytosis. Chronic stable anemia with hemoglobin 11.6. Chemistries are unremarkable. Normal renal function, no liver abnormalities Imaging studies independently reviewed: CT of the brain does not show acute finding CT angiogram of the neck does show bilateral carotid stenosis 70-90%. No large vessel occlusions appreciated Consultations: 11:30 a.m.. Spoke with [facility] interventional Radiology Neurosurgery, Dr. Wyman, I have reviewed imaging studies results with him regarding carotid artery stenosis and he would like patient to be discharged home and follow up with him closely this week in the office. His office will call patient for office appointment time. Treatments: Valium for MRI Re-evaluations:145am patient informs me that she just now took her own dose of 25 mg of carvedilol Discussion: 73-year-old woman with influenza, significant increase in overall dizziness with unsteady gait. Unclear this is due to her acute viral illness, she isn't sure if the symptoms started before after she took the 1st dose of Tamiflu and certainly could be a posterior circulation stroke. Have recommended MRI which will be arranged within the next couple of hours. We will see if we can get her to sleep for the interval time. Explained reasons for additional imaging. July 24, 2024 at 7:[address] Herron: Sign-out from Dr. Méndez, patient is waiting for MRI. She tested positive for influenza. Has had Tamiflu. MRI is pending for dizziness. Valium to be given prior to imaging. 7:40 a.m.. at bedside. They do understand MRI is not available during the nighttime. We are trying to get her in this morning. Patient in no distress. Valium and Zofran will be ordered. 10:49 a.m.. Updated patient MRI results however I am calling vascular surgery to review CT angiogram regarding the internal carotid artery findings for likely follow up. is not at bedside at this time. Patient states she does have prescription for Tamiflu. 11:25 a.m.. at bedside. I am waiting to hear back from her provider at [facility], she had Interventional Radiology neurosurgery services with them in the past. 11:35 a.m.. Patient and are gone. They have eloped from the department before I could go over the results of my discussion with Dr. Wyman. Discharge Plan Departure Patient Disposition: Home Clinical Impression: Influenza, Unsteady gait Hypertension Qualifiers: Hypertension type: primary hypertension Qualified Code(s): I10 - Essential (primary) hypertension Instructions: DI for Influenza -- Adult, DI for Dizziness-Nonvertigo, DI for Carotid Artery Stenosis Activity Restrictions/Additional Instructions: We have spoken with your neurosurgery services, Dr. Wyman, we have reviewed CT scan imaging and angiographic studies and MRI, who would like to see you in the office this week. Continue your medications for the flu. Keep well hydrated. Return if worse if any questions or concerns. The vessels in your neck do show blockages that need close follow up with Dr. Wyman this week. Prescriptions: No Action alendronate 70 mg tablet 70 mg PO QWEEK Qty: 12 2RF celecoxib [Celebrex] 200 mg capsule 200 mg PO Q OTHER DAY PRN (Reason: pain) Qty: 60 0RF venlafaxine [Effexor XR] 75 mg capsule,extended release 24hr 75 mg PO Q DAY Qty: 150 0RF tramadol 50 mg tablet 50 mg PO BEDTIME Qty: 30 0RF lisinopril 20 mg tablet 20 mg PO BID Qty: 250 0RF atorvastatin 40 mg tablet 40 mg PO BEDTIME Qty: 90 0RF Estradiol 0.0125% 1 g vaginal 2XW Qty: 30 6RF Rx Instructions: 1 gram vaginal 2 [facility] weekly. [facility] 25 mg tablet 25 mg PO BID Qty: 250 1RF Rx Instructions: must administer with a meal/food oseltamivir [Tamiflu] 75 mg capsule 75 mg PO BID 5 Days Qty: 10 0RF lorazepam 0.5 mg tablet 0.5 mg PO DAILY PRN (Reason: anxiety) Qty: 4 0RF daridorexant 25 mg tablet 25 mg PO BEDTIME Qty: 30 3RF Estring 2 mg (7.5 mcg /24 hour) ring 1 vag ring vaginal [id number] Qty: 1 3RF Referrals: Elda Gilliland DO [Primary Care Provider] - Stand Alone Forms: Patient Portal/API/Survey
--- NOTE | 2024-07-24 00:50 | DI.CT.S_ITS ---
PROCEDURE: CT HEAD/BRAIN WO CON INDICATIONS: acute dizziness and ataxic gait TECHNIQUE: Noncontrast 4.5 mm thick angled axial sections acquired from the foramen magnum to the vertex, with coronal and sagittal reformats. For radiation dose reduction, the following was used: automated exposure control, adjustment of mA and/or kV according to patient size. COMPARISON: None. FINDINGS: Image quality: Diagnostic. CSF spaces: Basal cisterns are patent. No extra-axial fluid collections. The ventricles are symmetric in size and shape. Brain: No intracranial bleeds or masses. There is cerebral volume loss for age, with resultant ventricular and sulcal prominence. There are periventricular and deep white matter chronic small vessel ischemic changes. There is intracranial internal carotid artery atherosclerosis. Skull and face: Calvarium and visualized facial bones appear intact, without suspicious lesions. Sinuses: Visualized sinuses and mastoids are clear. IMPRESSION: No acute intracranial pathology. Dictated by: Venkat Tenorio M.D. on 07/24/2024 at 1:24 Approved by: Venkat Tenorio M.D. on 07/24/2024 at 1:25
--- NOTE | 2024-07-24 00:50 | DI.CT.S_ITS ---
PROCEDURE: CT ANGIO HEAD AND NECK INDICATIONS: acute dizziness and ataxic gait TECHNIQUE: After the administration of intravenous contrast, 1 mm thick sections acquired from the aortic arch through the [place] of [place]. 3-dimensional ltqnwsl-rmblnnvdc-wjmrtmqula (MIP) and/or volume rendering reformats were acquired of the central intracranial vasculature and neck separately. For radiation dose reduction, the following was used: automated exposure control, adjustment of mA and/or kV according to patient size. COMPARISON: None. FINDINGS: Image quality: Diagnostic. BRAIN: Please refer to same day CT of the head. HEAD CT ANGIOGRAPHY: Anterior circulation: Intracranial internal carotid arteries demonstrate atherosclerotic calcifications with areas of mild stenosis. The flow within the paired anterior cerebral arteries is normal and symmetric. The flow within the middle cerebral arteries is normal and symmetric. The anterior communicating artery is seen. No aneurysms are seen. Posterior circulation: Visualized portions of the vertebral arteries demonstrate normal caliber, and join to form a normal appearing basilar artery. Flow within the posterior cerebral arteries is normal and symmetric. No aneurysms are seen. NECK CT ANGIOGRAPHY: Carotid system: The great vessels demonstrate a conventional anatomy as they arise from the aortic arch. The origins of the common carotid arteries appear patent. The common carotid arteries demonstrate normal caliber and courses. The bifurcation regions demonstrate coarse calcifications with high-grade stenosis of the bilateral proximal ICAs, greater than 70%. Posterior circulation: Right vertebral artery origin appears patent. At least moderate stenosis of the left vertebral artery origin. The more superior extracranial portions of both vertebral arteries also demonstrate normal courses and calibers. They join to form a normal appearing basilar artery. Soft tissues: Visualized neck soft tissues demonstrate no suspicious abnormalities. Biapical pleuroparenchymal scarring. Bones: No suspicious bony lesions. Visualized cervical spine appears normally aligned. Multilevel degenerative changes status post posterior spinal fixation and laminectomy. IMPRESSION: No significant intracranial arterial abnormality is seen. Coarse calcifications of the bilateral carotid bifurcations with high-grade stenosis of the bilateral proximal ICAs, greater than 70% and likely closer to 90%. At least moderate stenosis of the left vertebral artery origin. Any quantitative measurements of stenosis were performed using NASCET criteria. Dictated by: Venkat Tenorio M.D. on 07/24/2024 at 1:25 Approved by: Venkat Tenorio M.D. on 07/24/2024 at 1:31
[2024-07-24] MEDS: ACETAMINOPHEN 325 MG TABLET 975 MG PO (01:17)
--- NOTE | 2024-07-24 01:41 | DI.MRI.S_ITS ---
PROCEDURE: MR HEAD/BRAIN WO CON INDICATIONS: acute ataxia TECHNIQUE: Non-contrast axial T1 spin echo, axial T2 fast spin echo, sagittal and axial FLAIR, coronal T2 fast spin echo, axial gradient echo, axial diffusion and ADC through the brain. COMPARISON: [facility], CT, CT ANGIO HEAD AND NECK, 07/24/2024, 0:55. [facility], CT, CT HEAD/BRAIN WO CON, 07/24/2024, 0:55. FINDINGS: Image quality: Excellent. CSF spaces: Ventricles appear symmetric in size and shape. Basal cisterns are patent. No extra-axial fluid collections. Brain: No intracranial bleeds or mass effects. There is cerebral volume loss for age. There are periventricular and deep white matter chronic small vessel ischemic changes. Brainstem appears normal. Diffusion-weighted images show no acute infarct. No chronic ischemic insults. Normal intravascular flow voids are present. Skull and face: Calvarial bone marrow is normal in signal. Orbits are normal. Sinuses: Sinuses and mastoids are clear. IMPRESSION: No acute intracranial disease process. No acute or chronic infarcts. No intracranial hemorrhage or abnormal intracranial mass. Dictated by: Sharonda Ma MD, PhD on 07/24/2024 at 10:34 Approved by: Sharonda Ma MD, PhD on 07/24/2024 at 10:36
--- NOTE | 2024-07-24 01:41 | PC.NURSE ---
notified of patients BP
[2024-07-24] MEDS: diazePAM 10 MG/2 ML SYRINGE 5 MG IV ×2 (01:59→09:58)
--- NOTE | 2024-07-24 06:01 | PC.NURSE ---
Patient declines vitals
--- NOTE | 2024-07-24 06:02 | PC.NURSE ---
Patient has been up three times and ambulated to the bathroom. Patient more steady on her feet at this time
--- NOTE | 2024-07-24 06:29 | PC.NURSE ---
is at bedside. Patient taking her BP medication from home. Lisinopril 20 mg and Carvedilol 25 mg
[2024-07-24] MEDS: ONDANSETRON 4 MG/2 ML INJ IV (07:50)
--- NOTE | 2024-07-24 11:41 | PC.NURSE ---
Talked w/ pt and stated she left w/ IV in her arm. 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 Pt also informed she left her dc paper at the hospital. Pt states she will come and pick them up. Pt refused to come back to hospital for IV assessment.
--- NOTE | 2024-07-24 11:42 | PC.NURSE ---
Weakness. Pt able to walk w/o issue
== END 2024-07-24 11:49 | disposition home or self-care (01) ==
PROVIDERS: Emergency Medicine; Emergency Provider Emergency Medicine; PCP Family Medicine
DX: J10.1 Influenza due to other identified influenza virus with other respiratory manifestations (principal); H53.8 Other visual disturbances; I65.23 Occlusion and stenosis of bilateral carotid arteries; R26.81 Unsteadiness on feet; R51.9 Headache, unspecified; I10 Essential (primary) hypertension; R42 Dizziness and giddiness; R05.1 Acute cough; Z87.891 Personal history of nicotine dependence
CPT/HCPCS: 0241U; 36415; 70450; 70496; 70498; 70551; 80053; 80320; 85025; 87070; 96374; 96375; 96376; 99284; J2405; J3360; Q9967

== ENCOUNTER → 2024-08-06 15:56 | Outpatient (CLI) | payer MEDICARE, OTHER, SELFPAY ==
[2023-02-28 10:00] VITALS: BMI 22.4
--- NOTE | 2024-08-06 15:58 | DI.US.S_ITS ---
PROCEDURE: US CAROTID DOPPLER BI INDICATIONS: Abnormal CT of neck - bilateral stenosis TECHNIQUE: Color and pulse Doppler interrogation was performed of both carotid systems, with image documentation and velocity measurements. COMPARISON: [facility], CT, CT ANGIO HEAD AND NECK, 07/24/2024, 0:55. FINDINGS: Stenosis calculations are based on SRU (Society of Radiologists in Ultrasound) criteria. Right side: Brachial blood pressure: 118/56 mm Hg. Common carotid artery peak systolic velocity: 75 cm/sec. Internal carotid artery peak systolic velocity: 206 cm/sec. Internal carotid artery end diastolic velocity: 54 cm/sec. External carotid artery peak systolic velocity: 175 cm/sec. ICA/CCA peak systolic ratio: 2.7. Tiwrai scale imaging description: Calcified atherosclerotic plaque Percent internal carotid artery stenosis: 50-69 % Vertebral artery: Flow direction is antegrade. Left side: Brachial blood pressure: 105/60 mm Hg. Common carotid artery peak systolic velocity: 52 cm/sec. Internal carotid artery peak systolic velocity: 428 cm/sec. Internal carotid artery end diastolic velocity: 35 cm/sec. External carotid artery peak systolic velocity: 112 cm/sec. ICA/CCA peak systolic ratio: 2.9. Tiwari scale imaging description: Calcified and noncalcified atherosclerotic plaque. Percent internal carotid artery stenosis: Greater than 70 % Vertebral artery: Flow direction is antegrade. IMPRESSION: 1. In the right carotid artery, there is 50-69% stenosis based on peak systolic velocity criteria. 2. In the left carotid artery, there is 70% stenosis to near occlusion based on peak systolic velocity criteria. 3. Antegrade vertebral arteries. Approved by: Christoph Naik M.D. on 08/07/2024 at 16:27
== END ==
PROVIDERS: PCP Family Medicine; Referring Provider Physician Assistant; Visit Provider Physician Assistant
DX: R93.89 Abnormal findings on diagnostic imaging of other specified body structures (principal); I65.23 Occlusion and stenosis of bilateral carotid arteries
CPT/HCPCS: 93880

== ENCOUNTER → 2024-08-22 13:56 | Outpatient (CLI) | payer MEDICARE, OTHER, SELFPAY ==
[2024-08-22 06:37] VITALS: BMI 22.4
[2024-08-22 15:29] LABS: Hematocrit 34.8 % (36-46); Hemoglobin 11.7 g/dL (12.0-16.0); Mean Corpuscular HGB Conc 33.7 % (30-36); Mean Corpuscular Hemoglobin 31.6 PG (26-34); Mean Corpuscular Volume 93.9 fL (80-100); Platelet Count 247 X10^3/uL (150-400); Red Cell Distribution Width 13.1 % (11.6-14.8); White Blood Cell Count 5.7 X10^3/uL (4.5-11.0)
[2024-08-22 15:43] LABS: Hemoglobin A1C% w Est Avg Glu 5.5 % (4.0-6.0)
[2024-08-22 16:15] LABS: Prothrombin Time 11.1 SECONDS (9.4-12.5)
[2024-08-22 16:27] LABS: BUN Creatinine Ratio 18.3 (6-22); Blood Urea Nitrogen 21 mg/dL (7-17); Calcium 9.3 mg/dL (8.4-10.2); Carbon Dioxide 25 mmol/L (22-32); Chloride 103 mmol/L (98-107); Estimated Glomerular Filt Rate 51 mL/min (>60); Glucose 90 mg/dL (80-110); HEMOLYSIS < 15 (0-50); Potassium 4.5 mmol/L (3.4-5.1); Sodium 137 mmol/L (137-145)
[2024-08-22 16:35] LABS: Neutrophils Absolute Manual 3876 /uL (3000-5900); RBC Morphology Normal Morphology; Total Cells Counted 100
== END ==
LOC: LAB 13:57
PROVIDERS: PCP Family Medicine; Referring Provider Family Medicine; Visit Provider Family Medicine
DX: Z01.818 Encounter for other preprocedural examination (principal)
CPT/HCPCS: 36415; 80048; 83036; 85025; 85610

== ENCOUNTER → 2024-09-18 08:35 | Outpatient (CLI) | payer MEDICARE, OTHER, SELFPAY ==
[2024-08-22 06:37] VITALS: BMI 22.4
--- NOTE | 2024-09-18 08:36 | DI.US.S_ITS ---
PROCEDURE: US CAROTID DOPPLER BI INDICATIONS: LEFT CAROTID ENDARTERECTOMY WITH STENT 09/03/24 FOLLOW UP TECHNIQUE: Color and pulse Doppler interrogation was performed of both carotid systems, with image documentation and velocity measurements. COMPARISON: [facility], , US CAROTID DOPPLER BI, 08/06/2024, 16:10. FINDINGS: Stenosis calculations are based on SRU (Society of Radiologists in Ultrasound) criteria. Right side: Brachial blood pressure: 117/69 mm Hg. Common carotid artery peak systolic velocity: 69 cm/sec. Internal carotid artery peak systolic velocity: 213 cm/sec. Internal carotid artery end diastolic velocity: 67 cm/sec. External carotid artery peak systolic velocity: 167 cm/sec. ICA/CCA peak systolic ratio: 2.6 . Tiwari scale imaging description: Coarse calcified plaque in the distal common carotid artery and carotid bulb causing a significant subjective luminal stenosis. There is spectral broadening of the waveform distal to the stenosis in the internal and external carotid arteries. Percent internal carotid artery stenosis: Nearly 70% . Vertebral artery: Flow direction is antegrade. Left side: Brachial blood pressure: 115/64 mm Hg. Common carotid artery peak systolic velocity: 56 cm/sec. Internal carotid artery peak systolic velocity: 62 cm/sec. Internal carotid artery end diastolic velocity: 21 cm/sec. External carotid artery peak systolic velocity: 108 cm/sec. ICA/CCA peak systolic ratio: 1.1 . Tiwari scale imaging description: There is a patent intraluminal stent present from the distal common carotid artery into the mid internal carotid artery. Percent internal carotid artery stenosis: No stenosis. Vertebral artery: Flow direction is antegrade. IMPRESSION: 1. In the right carotid artery, there is 60-70% stenosis based on peak systolic velocity criteria. This is similar compared to the prior exam. 2. In the left carotid artery, there has been placement of a common to internal carotid artery stent which is widely patent. Peak systolic velocity in the stent is normal. 3. Antegrade vertebral arteries. Dictated by: Rubi Odell M.D. on 09/19/2024 at 11:25 Approved by: Rubi Odell M.D. on 09/19/2024 at 11:31
== END ==
PROVIDERS: PCP Family Medicine; Referring Provider Family Medicine; Visit Provider Family Medicine
DX: I65.21 Occlusion and stenosis of right carotid artery (principal); Z98.890 Other specified postprocedural states
CPT/HCPCS: 93880